=== PATIENT | female | born 1935 | race American Indian/Alaskan Native ===

== ENCOUNTER 2018-07-04 16:20 | Inpatient (IN) | payer MEDICARE ==
[2018-07-04 17:17] LABS: Basophils % (Auto) 0.4 % (0.0-1.8); Eosinophils % (Auto) 0.1 % (0.0-4.3); Hematocrit 42.8 % (30.3-42.9); Hemoglobin 13.7 gm/dl (10.1-14.3); Lymphocytes # (Auto) 0.7 K/mm3 (1.2-5.4); Lymphocytes % (Auto) 9.3 % (13.4-35.0); Mean Corpuscular HGB Conc 32 % (30-34); Mean Corpuscular Hemoglobin 26 pg (28-32); Mean Corpuscular Volume 82 fl (79-97); Monocytes # (Auto) 0.2 K/mm3 (0.0-0.8); Monocytes % (Auto) 2.3 % (0.0-7.3); Platelet Count 282 K/mm3 (140-440); Red Blood Count 5.22 M/mm3 (3.65-5.03); Red Cell Distribution Width 16.4 % (13.2-15.2)
[2018-07-04 17:28] LABS: BUN/Creatinine Ratio 18; Blood Urea Nitrogen 18 mg/dL (7-17); Calcium 9.9 mg/dL (8.4-10.2); Hemolysis Index 5
[2018-07-04] MEDS ORDERED: NACL 0.9% 1000 ML 1,000 ML ONE ×2 (18:11→20:04)
[2018-07-04] MEDS ORDERED: NITROSTAT SL ONE ×2 (18:11→18:24)
[2018-07-04] MEDS ORDERED: NACL 0.9% 1000 ML 1,000 ML IV ONE (18:24)
--- NOTE | 2018-07-04 18:39 | Emergency Department Report ---
ED General Adult HPI - General Chief complaint: Weakness Stated complaint: WEAK/SHORTNESS OF BREATH Time Seen by Provider: 07/04/18 17:56 Source: patient, EMS Mode of arrival: Stretcher Limitations: Other - History of Present Illness Initial comments: Progressive onset SOB that started at 2 am. Having intermittent nausea and vomiting. Has vague complaints of lower abd pain. No diarrhea, fevers, urinary complaints. Nonambulatory at baseline. On xarelto. - Related Data Home Medications Medication Instructions Recorded Confirmed Last Taken Cyanocobalamin (Vitamin B-12) 2,000 mcg PO DAILY 02/27/15 09/21/16 09/20/16 09: 00 [B-12] Digoxin [Lanoxin] 0.125 mg PO DAILY 02/27/15 09/20/16 05/26/15 Furosemide [Lasix] 40 mg PO DAILY 02/27/15 09/20/16 05/26/15 Gabapentin 300 mg PO TID 02/27/15 09/21/16 09/20/16 21:00 Glimepiride [Amaryl] 8 mg PO QAM 02/27/15 09/21/16 09/20/16 09:00 Metoprolol Succinate [Metoprolol 200 mg PO DAILY 02/27/15 09/21/16 09/20/16 09: 00 SUCCINATE ER TAB] Sitagliptin Phosphate [Januvia] 100 mg PO DAILY 02/27/15 09/21/16 09/20/16 09:00 Acetaminophen [Tylenol Arthritis] 325 mg PO PRN PRN 09/07/16 09/20/16 Unknown Allopurinol [Zyloprim] 300 mg PO QHS 09/07/16 09/21/16 09/20/16 21:00 Aspirin [Adult Low Dose Aspirin EC] 81 mg PO DAILY 09/07/16 09/21/16 09/20/16 09 :00 AtorvaSTATin [Lipitor] 40 mg PO DAILY 09/07/16 09/21/16 09/20/16 09:00 Escitalopram [Lexapro] 10 mg PO DAILY 09/07/16 09/21/16 09/20/16 09:00 Fenofibrate [Tricor] 145 mg PO QDAY 09/07/16 09/21/16 09/20/16 09:00 Insulin Lispro [HumaLOG VIAL] 1 unit SQ BID 09/07/16 09/20/16 Unknown Rivaroxaban [Xarelto] 20 mg PO DAILY 09/07/16 09/21/16 09/20/16 09:00 Ergocalciferol [Vitamin D2] 1 cap PO QWEEK 09/20/16 09/20/16 Unknown Previous Rx's Medication Instructions Recorded Last Taken Type HYDROcodone/APAP 5-325 [Freedom 1 each PO Q6HR PRN #20 tablet 06/05/15 Unknown Rx 5-325 mg TAB] Lisinopril [Zestril TAB] 20 mg PO QDAY #30 tablet 06/05/15 09/20/16 09:00 Rx Allergies Allergy/AdvReac Type Severity Reaction Status Date / Time No Known Allergies Allergy Verified 02/27/15 11:21 ED Review of Systems ROS: Stated complaint: WEAK/SHORTNESS OF BREATH Other details as noted in HPI Comment: All other systems reviewed and negative Respiratory: SOB at rest Cardiovascular: chest pain Gastrointestinal: abdominal pain, nausea, vomiting ED Past Medical Hx - Past Medical History Hx Hypertension: Yes Hx Congestive Heart Failure: Yes (CHRONIC) Hx Diabetes: Yes Hx Renal Disease: No 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) Hx Seizures: No Hx Asthma: No Hx COPD: No Additional medical history: high cholesterol - Surgical History Hx Pacemaker: Yes ("for slow heart rate") - Social History Smoking Status: Never Smoker Substance Use Type: None - Medications Home Medications: Home Medications Medication Instructions Recorded Confirmed Last Taken Type Cyanocobalamin (Vitamin B-12) 2,000 mcg PO DAILY 02/27/15 09/21/16 09/20/16 09: 00 History [B-12] Digoxin [Lanoxin] 0.125 mg PO DAILY 02/27/15 09/20/16 05/26/15 History Furosemide [Lasix] 40 mg PO DAILY 02/27/15 09/20/16 05/26/15 History Gabapentin 300 mg PO TID 02/27/15 09/21/16 09/20/16 21:00 History Glimepiride [Amaryl] 8 mg PO QAM 02/27/15 09/21/16 09/20/16 09:00 History Metoprolol Succinate [Metoprolol 200 mg PO DAILY 02/27/15 09/21/16 09/20/16 09: 00 History SUCCINATE ER TAB] Sitagliptin Phosphate [Januvia] 100 mg PO DAILY 02/27/15 09/21/16 09/20/16 09: 00 History HYDROcodone/APAP 5-325 [Freedom 1 each PO Q6HR PRN #20 tablet 06/05/15 09/20/16 Unknown Rx 5-325 mg TAB] Lisinopril [Zestril TAB] 20 mg PO QDAY #30 tablet 06/05/15 09/21/16 09/20/16 09: 00 Rx Acetaminophen [Tylenol Arthritis] 325 mg PO PRN PRN 09/07/16 09/20/16 Unknown History Allopurinol [Zyloprim] 300 mg PO QHS 09/07/16 09/21/16 09/20/16 21:00 History Aspirin [Adult Low Dose Aspirin EC] 81 mg PO DAILY 09/07/16 09/21/16 09/20/16 09 :00 History AtorvaSTATin [Lipitor] 40 mg PO DAILY 09/07/16 09/21/16 09/20/16 09:00 History Escitalopram [Lexapro] 10 mg PO DAILY 09/07/16 09/21/16 09/20/16 09:00 History Fenofibrate [Tricor] 145 mg PO QDAY 09/07/16 09/21/16 09/20/16 09:00 History Insulin Lispro [HumaLOG VIAL] 1 unit SQ BID 09/07/16 09/20/16 Unknown History Rivaroxaban [Xarelto] 20 mg PO DAILY 09/07/16 09/21/16 09/20/16 09:00 History Ergocalciferol [Vitamin D2] 1 cap PO QWEEK 09/20/16 09/20/16 Unknown History ED Physical Exam - General Limitations: No Limitations General appearance: alert, in no apparent distress - Head Head exam: Present: atraumatic, normocephalic - Eye Eye exam: Present: normal appearance - ENT ENT exam: Present: mucous membranes moist - Neck Neck exam: Present: normal inspection - Respiratory Respiratory exam: Present: normal lung sounds bilaterally. Absent: respiratory distress - Cardiovascular Cardiovascular Exam: Present: regular rate, normal rhythm, tachycardia, JVD ( moderate). Absent: systolic murmur, diastolic murmur, rubs, gallop - GI/Abdominal GI/Abdominal exam: Present: soft, normal bowel sounds. Absent: distended, tenderness, guarding, rebound - Extremities Exam Extremities exam: Present: normal inspection, pedal edema (bilateral trace pedal edema) - Back Exam Back exam: Present: normal inspection - Neurological Exam Neurological exam: Present: alert, oriented X3 - Psychiatric Psychiatric exam: Present: normal affect, normal mood - Skin Skin exam: Present: warm, dry, intact, normal color. Absent: rash ED Course Vital Signs 07/04/18 07/04/18 07/04/18 17:36 18:05 18:28 Temperature Pulse Rate 144 H 127 H Respiratory 40 H Rate Blood Pressure 141/93 Blood Pressure [Left] O2 Sat by Pulse 98 96 Oximetry 07/04/18 07/04/18 07/04/18 18:31 19:01 19:31 Temperature Pulse Rate 137 H 126 H 130 H Respiratory 23 25 H 20 Rate Blood Pressure 147/95 139/97 142/106 Blood Pressure [Left] O2 Sat by Pulse 95 98 97 Oximetry 07/04/18 07/04/18 07/04/18 19:45 20:27 20:31 Temperature Pulse Rate 130 H 122 H Respiratory 42 H Rate Blood Pressure 142/106 144/91 146/89 Blood Pressure [Left] O2 Sat by Pulse 100 97 Oximetry 07/04/18 07/04/18 07/04/18 21:01 21:05 21:20 Temperature 97.3 F L Pulse Rate 127 H 130 H 97 H Respiratory 29 H 20 Rate Blood Pressure 144/110 141/110 Blood Pressure 122/86 [Left] O2 Sat by Pulse 99 97 Oximetry 07/04/18 21:25 Temperature Pulse Rate 97 H Respiratory Rate Blood Pressure 122/86 Blood Pressure [Left] O2 Sat by Pulse Oximetry - Reevaluation(s) Reevaluation #1: Repeat EKG shows a. fib w/ RVR with a rate of 127 07/04/18 20:01 Reevaluation #2: CT C/A/P without acute changes. Troponin mildly elevated at 1.9. Repeat EKG shows sinus tach and a. fib w/ rvr. Likely presentation is due to a. fib w/ rvr and CHF exacerbation. Pt has been given lasix/metoprolol. Feels better on re- eval. She is cleared for admission to the hospital. 07/04/18 21:55 ED Medical Decision Making - Lab Data Result diagrams: 07/04/18 16:51 07/04/18 16:51 - EKG Data -: EKG Interpreted by Me EKG shows normal: sinus rhythm, axis, QRS complexes, ST-T waves Rate: tachycardia - EKG Data Interpretation: other (prolonged qt interval with a QTc of 515, ) - Radiology Data Radiology results: report reviewed, image reviewed - Medical Decision Making 82-year-old female with past medical history CHF on Lasix, atrial fibrillation on Zaroxolyn/metoprolol, diabetes that presents to the ER with shortness of breath. Patient is tachycardic on presentation. Normal oxygenation. Mild tachypnea. Speaking in full sentences. Patient has moderate JVD and trace pedal edema bilaterally. Chest x-ray shows mild bilateral interstitial edema. She was given a sublingual nitroglycerin, which improved her symptoms. EKG shows sinus tachycardia. Given patient's varying heart rate, I think that patient might be having paroxysmal a. fib that might not have been captured on our EKG. SHe is already anticoagulated. Will give IV metoprolol for rate control once her CT's have been read since she is HD stable. BNP is significantly elevated at 19,000. I will give the patient 40 mg IV Lasix for likely CHF exacerbation. Troponin and digoxin level are pending. I will order a CT chest, abdomen, and pelvis given patient's nondescript history of abdominal pain, as well as sedentary lifestyle through a possible PE. - Differential Diagnosis ACS, PE, CHF exacerbation, UTI, dehydration, sepsis, pna Critical care attestation.: If time is entered above; I have spent that time in minutes in the direct care of this critically ill patient, excluding procedure time. ED Disposition Clinical Impression: CHF exacerbation Atrial fibrillation Qualifiers: Atrial fibrillation type: chronic Qualified Code(s): I48.2 - Chronic atrial fibrillation Disposition: OP ADMIT IP TO THIS HOSP Is pt being admited?: Yes Does the pt Need Aspirin: No Condition: Stable Referrals: PRIMARY CARE, [Primary Care Provider] - 3-5 Days
--- NOTE | 2018-07-04 18:43 | XRay Report ---
FINAL REPORT EXAM: XR CHEST 1V AP HISTORY: Shortness of breath TECHNIQUE: Frontal chest x-ray Comparison: None FINDINGS: Bipolar pacer is present. Cardiomegaly. Mild pulmonary vascular cephalization. Mild bronchial wall thickening. Patient is slightly rotated. IMPRESSION: Cardiomegaly. Bipolar pacer. Mild pulmonary vascular cephalization with bronchial wall thickening. Findings may represent chronic congestive changes or a more acute vascular decompensation. Correlate with clinical symptoms. Two view chest with larger inspiratory volumes may be valuable
[2018-07-04] MEDS ORDERED: LASIX IV ONE (18:56)
[2018-07-04] MEDS ORDERED: LOPRESSOR IV ONE ×2 (18:56→20:35)
[2018-07-04] MEDS ORDERED: BABY ASPIRIN PO ONE (19:25)
[2018-07-04] MEDS ORDERED: NITROSTAT SL PRN (19:34)
[2018-07-04 19:35] LABS: Chol/HDL Ratio 3.24 %
[2018-07-04] MEDS ORDERED: ACETAMINOPHEN 325 MG PO PRN (20:05)
--- NOTE | 2018-07-04 20:05 | History and Physical Report ---
History of Present Illness Date of examination: 07/04/18 Date of admission: 07/04/2018 Chief complaint: Chief complaint: Increasing shortness of breath for 1 week History of present illness: History of Present Illness: 82-year-old black female with multiple medical problems including CHF atrial fibrillation insulin-dependent diabetes hypertension gout and hyperlipidemia comes in for increasing shortness of breath for last 1 week. More so since 2 AM. Patient is unable to lie flat. Patient has NYHA class IV symptoms. Severe orthopnea present. No PND attacks. No fever or chills. He gets short of breath on walking for about couple yards. No chest pain. 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) Asthma: No COPD: No Additional medical history: high cholesterol Surgical History Hx Pacemaker: Yes ("for slow heart rate") Social History Smoking Status: Never Smoker Substance Use Type: None Family history Htn Medications Home Medications: Home Medications Medication Instructions Recorded Confirmed Last Taken Type Cyanocobalamin (Vitamin B-12) 2,000 mcg PO DAILY 02/27/15 09/21/16 09/20/16 09: 00 History [B-12] Digoxin [Lanoxin] 0.125 mg PO DAILY 02/27/15 09/20/16 05/26/15 History Furosemide [Lasix] 40 mg PO DAILY 02/27/15 09/20/16 05/26/15 History Gabapentin 300 mg PO TID 02/27/15 09/21/16 09/20/16 21:00 History Glimepiride [Amaryl] 8 mg PO QAM 02/27/15 09/21/16 09/20/16 09:00 History Metoprolol Succinate [Metoprolol 200 mg PO DAILY 02/27/15 09/21/16 09/20/16 09: 00 History SUCCINATE ER TAB] Sitagliptin Phosphate [Januvia] 100 mg PO DAILY 02/27/15 09/21/16 09/20/16 09: 00 History HYDROcodone/APAP 5-325 [[place] 1 each PO Q6HR PRN #20 tablet 06/05/15 09/20/16 Unknown Rx 5-325 mg TAB] Lisinopril [Zestril TAB] 20 mg PO QDAY #30 tablet 06/05/15 09/21/16 09/20/16 09: 00 Rx Acetaminophen [Tylenol Arthritis] 325 mg PO PRN PRN 09/07/16 09/20/16 Unknown History Allopurinol [Zyloprim] 300 mg PO QHS 09/07/16 09/21/16 09/20/16 21:00 History Aspirin [Adult Low Dose Aspirin EC] 81 mg PO DAILY 09/07/16 09/21/16 09/20/16 09 :00 History AtorvaSTATin [Lipitor] 40 mg PO DAILY 09/07/16 09/21/16 09/20/16 09:00 History Escitalopram [Lexapro] 10 mg PO DAILY 09/07/16 09/21/16 09/20/16 09:00 History Fenofibrate [Tricor] 145 mg PO QDAY 09/07/16 09/21/16 09/20/16 09:00 History Insulin Lispro [HumaLOG VIAL] 1 unit SQ BID 09/07/16 09/20/16 Unknown History Rivaroxaban [Xarelto] 20 mg PO DAILY 09/07/16 09/21/16 09/20/16 09:00 History Ergocalciferol [Vitamin D2] 1 cap PO QWEEK 09/20/16 09/20/16 Unknown History Review of systems ROS: Stated complaint: WEAK/SHORTNESS OF BREATH Other details as noted in HPI Comment: All other systems reviewed and negative Respiratory: SOB at rest Cardiovascular: No chest pain, shortness of breath on lying flat. Also shortness of breath on minimal exertion Gastrointestinal: abdominal pain, nausea, vomiting 14 point review of systems done--otherwise negative Medications and Allergies Allergies Allergy/AdvReac Type Severity Reaction Status Date / Time No Known Allergies Allergy Verified 02/27/15 11:21 Home Medications Medication Instructions Recorded Confirmed Last Taken Type Cyanocobalamin (Vitamin B-12) 2,000 mcg PO DAILY 02/27/15 09/21/16 09/20/16 09: 00 History [B-12] Digoxin [Lanoxin] 0.125 mg PO DAILY 02/27/15 09/20/16 05/26/15 History Furosemide [Lasix] 40 mg PO DAILY 02/27/15 09/20/16 05/26/15 History Gabapentin 300 mg PO TID 02/27/15 09/21/16 09/20/16 21:00 History Glimepiride [Amaryl] 8 mg PO QAM 02/27/15 09/21/16 09/20/16 09:00 History Metoprolol Succinate [Metoprolol 200 mg PO DAILY 02/27/15 09/21/16 09/20/16 09: 00 History SUCCINATE ER TAB] Sitagliptin Phosphate [Januvia] 100 mg PO DAILY 02/27/15 09/21/16 09/20/16 09: 00 History HYDROcodone/APAP 5-325 [[place] 1 each PO Q6HR PRN #20 tablet 06/05/15 09/20/16 Unknown Rx 5-325 mg TAB] Lisinopril [Zestril TAB] 20 mg PO QDAY #30 tablet 06/05/15 09/21/16 09/20/16 09: 00 Rx Acetaminophen [Tylenol Arthritis] 325 mg PO PRN PRN 09/07/16 09/20/16 Unknown History Allopurinol [Zyloprim] 300 mg PO QHS 09/07/16 09/21/16 09/20/16 21:00 History Aspirin [Adult Low Dose Aspirin EC] 81 mg PO DAILY 09/07/16 09/21/16 09/20/16 09 :00 History AtorvaSTATin [Lipitor] 40 mg PO DAILY 09/07/16 09/21/16 09/20/16 09:00 History Escitalopram [Lexapro] 10 mg PO DAILY 09/07/16 09/21/16 09/20/16 09:00 History Fenofibrate [Tricor] 145 mg PO QDAY 09/07/16 09/21/16 09/20/16 09:00 History Insulin Lispro [HumaLOG VIAL] 1 unit SQ BID 09/07/16 09/20/16 Unknown History Rivaroxaban [Xarelto] 20 mg PO DAILY 09/07/16 09/21/16 09/20/16 09:00 History Ergocalciferol [Vitamin D2] 1 cap PO QWEEK 09/20/16 09/20/16 Unknown History Active Meds: Active Medications Nitroglycerin (Nitrostat) 0.4 mg SL .Q5MIN PRN PRN Reason: Chest Pain Exam - Physical Exam Narrative exam: Lying in bed uncomfortable - Constitutional Vitals: Temp Pulse Resp BP Pulse Ox 130 H 20 142/106 97 07/04/18 19:31 07/04/18 19:31 07/04/18 19:31 07/04/18 19:31 General appearance: Present: mild distress, well-nourished - EENT Eyes: Present: PERRL ENT: hearing intact, clear oral mucosa - Neck Neck: Present: supple, normal ROM - Respiratory Respiratory effort: normal Respiratory: bilateral: CTA - Cardiovascular Heart rate: 96 Rhythm: irregularly irregular Heart Sounds: Present: S1 & S2. Absent: rub, click - Extremities Extremities: no ischemia, pulses intact, pulses symmetrical, No edema Extremity abnormal: edema (pedal edema present) Peripheral Pulses: within normal limits - Abdominal General gastrointestinal: Present: soft, non-tender, non-distended, normal bowel sounds Female genitourinary: Present: normal - Rectal Rectal Exam: deferred - Integumentary Integumentary: Present: clear, warm, dry - Musculoskeletal Musculoskeletal: gait normal, strength equal bilaterally - Psychiatric Psychiatric: appropriate mood/affect, intact judgment & insight - Neurologic Neurologic: CNII-XII intact, moves all extremities - Allied Health Allied health notes reviewed: nursing, case management Results - Labs CBC & Chem 7: 07/04/18 16:51 07/04/18 16:51 Labs: Laboratory Last Values WBC 7.3 K/mm3 (4.5-11.0) 07/04/18 16:51 RBC 5.22 M/mm3 (3.65-5.03) H 07/04/18 16:51 Hgb 13.7 gm/dl (10.1-14.3) 07/04/18 16:51 Hct 42.8 % (30.3-42.9) 07/04/18 16:51 MCV 82 fl (79-97) 07/04/18 16:51 MCH 26 pg (28-32) L 07/04/18 16:51 MCHC 32 % (30-34) 07/04/18 16:51 RDW 16.4 % (13.2-15.2) H 07/04/18 16:51 Plt Count 282 K/mm3 (140-440) 07/04/18 16:51 Lymph % (Auto) 9.3 % (13.4-35.0) L 07/04/18 16:51 [place] % (Auto) 2.3 % (0.0-7.3) 07/04/18 16:51 Eos % (Auto) 0.1 % (0.0-4.3) 07/04/18 16:51 Baso % (Auto) 0.4 % (0.0-1.8) 07/04/18 16:51 Lymph # 0.7 K/mm3 (1.2-5.4) L 07/04/18 16:51 [place] # 0.2 K/mm3 (0.0-0.8) 07/04/18 16:51 Eos # 0.0 K/mm3 (0.0-0.4) 07/04/18 16:51 Baso # 0.0 K/mm3 (0.0-0.1) 07/04/18 16:51 Seg Neutrophils % 87.9 % (40.0-70.0) H 07/04/18 16:51 Seg Neutrophils # 6.4 K/mm3 (1.8-7.7) 07/04/18 16:51 Sodium 138 mmol/L (137-145) 07/04/18 16:51 Potassium 4.4 mmol/L (3.6-5.0) 07/04/18 16:51 Chloride 100.0 mmol/L (98-107) 07/04/18 16:51 Carbon Dioxide 17 mmol/L (22-30) L 07/04/18 16:51 Anion Gap 25 mmol/L 07/04/18 16:51 BUN 18 mg/dL (7-17) H 07/04/18 16:51 Creatinine 1.0 mg/dL (0.7-1.2) 07/04/18 16:51 Estimated GFR > 60 ml/min 07/04/18 16:51 BUN/Creatinine Ratio 18 % 07/04/18 16:51 Glucose 197 mg/dL (65-100) H 07/04/18 16:51 Calcium 9.9 mg/dL (8.4-10.2) 07/04/18 16:51 Troponin T 1.930 ng/mL (0.00-0.029) H* 07/04/18 18:52 NT-Pro-B Natriuret Pep 91299 pg/mL (0-900) H 07/04/18 16:51 Triglycerides 102 mg/dL (2-149) 07/04/18 18:52 Cholesterol 185 mg/dL (50-199) 07/04/18 18:52 LDL Cholesterol Direct 133 mg/dL (50-130) H 07/04/18 18:52 HDL Cholesterol 57 mg/dL (40-59) 07/04/18 18:52 Cholesterol/HDL Ratio 3.24 % 07/04/18 18:52 Short CBC 07/04/18 Range/Units 16:51 WBC 7.3 (4.5-11.0) K/mm3 Hgb 13.7 (10.1-14.3) gm/dl Hct 42.8 (30.3-42.9) % Plt Count 282 (140-440) K/mm3 BMP 07/04/18 16:51 Sodium 138 Potassium 4.4 Chloride 100.0 Carbon Dioxide 17 L BUN 18 H Creatinine 1.0 Glucose 197 H Calcium 9.9 Cardiac Enzymes 07/04/18 Range/Units 18:52 Troponin T 1.930 H* (0.00-0.029) ng/mL - Imaging and Cardiology EKG: report reviewed (atrial fibrillation ventricular premature complexes right bundle-branch block heart rate of 121/m) Imaging and Cardiology: Chest x-ray IMPRESSION: Cardiomegaly. Bipolar pacer. Mild pulmonary vascular cephalization with bronchial wall thickening. Findings may represent chronic congestive changes or a more acute vascular decompensation. Correlate with clinical symptoms. Two view chest with larger inspiratory volumes may be valuable CT angiogram Report not available Assessment and Plan Advance Directives: Yes (full code) VTE prophylaxis?: Chemical Plan of care discussed with patient/family: Yes - Patient Problems (1) Non-STEMI (non-ST elevated myocardial infarction) Current Visit: Yes Status: Acute Plan to address problem: Troponin very high Patient started on IV heparin Repeat the troponins (2) Acute respiratory failure with hypoxia Current Visit: Yes Status: Acute Plan to address problem: Secondary to CHF Correct the congestive heart failure (3) Acute exacerbation of congestive heart failure Current Visit: Yes Status: Acute Qualifiers: Heart failure type: combined systolic and diastolic Qualified Code(s): I50.43 - Acute on chronic combined systolic (congestive) and diastolic ( congestive) heart failure Plan to address problem: Patient has severe CHF exacerbation BNP is around 18 ,000 IV Lasix 40 mg every 12 Cardiology consult requested Echocardiogram ordered Cardiac rehabilitation as outpatient (4) Atrial fibrillation Current Visit: Yes Status: Chronic Qualifiers: Atrial fibrillation type: chronic Qualified Code(s): I48.2 - Chronic atrial fibrillation Plan to address problem: Continue Xarelto and digoxin (5) Hypertension Current Visit: Yes Status: Chronic Qualifiers: Hypertension type: essential hypertension Qualified Code(s): I10 - Essential (primary) hypertension Plan to address problem: Continue antihypertensives in the form of lisinopril and metoprolol (6) T2DM (type 2 diabetes mellitus) Current Visit: Yes Status: Chronic Qualifiers: Diabetes mellitus residential insulin use: without technician terminal and repeater use Plan to address problem: Continue Januvia and glimepiride and coverage Check hemoglobin A1c (7) Hyperlipidemia Current Visit: Yes Status: Chronic Qualifiers: Hyperlipidemia type: mixed hyperlipidemia Qualified Code(s): E78.2 - Mixed hyperlipidemia Plan to address problem: Continue statins (8) Gout Current Visit: Yes Status: Inactive Qualifiers: Chronicity: unspecified Plan to address problem: continue allopurinol to prevent gout attack (9) Vitamin D deficiency Current Visit: Yes Status: Chronic Plan to address problem: Patient can resume vitamin D after discharged (10) Depression Current Visit: Yes Status: Chronic Qualifiers: Depression Type: unspecified Qualified Code(s): F32.9 - Major depressive disorder, single episode, unspecified Plan to address problem: Continue Lexapro (11) DVT prophylaxis Current Visit: Yes Status: Acute Plan to address problem: Patient on Xarelto GI prophylaxis initiated
[2018-07-04] MEDS ORDERED: MORPHINE IV PRN (20:09)
[2018-07-04] MEDS ORDERED: AMBIEN PO PRN (20:09)
[2018-07-04] MEDS ORDERED: SODIUM CHLORIDE FLUSH SYRINGE 10 ML IV PRN ×2 (20:09→21:02)
[2018-07-04] MEDS ORDERED: TYLENOL PO PRN ×2 (20:09→21:02)
[2018-07-04] MEDS ORDERED: ZOFRAN IV PRN ×2 (20:09→21:02)
[2018-07-04] MEDS ORDERED: METOPROLOL SUCCINATE 200 MG PO SCH (20:15)
[2018-07-04] MEDS ORDERED: NON-FORMULARY (Sitagliptin Phosphate [Januvia] 100 MG) PO SCH (20:15)
[2018-07-04] MEDS ORDERED: NORCO 5/325 PO PRN (20:32)
[2018-07-04] MEDS ORDERED: LASIX PO SCH (21:00)
[2018-07-04] MEDS ORDERED: HumaLOG SUB-Q ONE (21:00)
[2018-07-04] MEDS ORDERED: XARELTO PO SCH (21:00)
[2018-07-04 21:24] LABS: Amorphous Crystals,Urine Few; Bilirubin,Urine NEG (Negative); Blood,Urine SM (Negative); Color,Urine Yellow (Yellow); Protein,Urine <15 mg/dL mg/dL (Negative); Urobilinogen,Urine < 2.0 mg/dL (<2.0)
[2018-07-04] MEDS: TOPROL XL PO SCH (21:25)
[2018-07-04] MEDS: ZESTRIL PO SCH (21:25)
[2018-07-04] MEDS: TRADJENTA PO SCH (21:41)
--- NOTE | 2018-07-04 21:41 | Cat Scan Report ---
FINAL REPORT EXAM: CT ANGIO CHEST HISTORY: dyspnea TECHNIQUE: Spiral CTA of the chest after the uneventful administration of IV contrast. Multiplanar reformations. 100 mL Omnipaque IV. PRIORS: None. FINDINGS: Chest: The main and bilateral proximal pulmonary arteries are normally opacified without endoluminal filling defects. Left subclavian transvenous cardiac device, moderate cardiomegaly and coronary artery calcifications. Thoracic aorta suboptimally opacified, without apparent aneurysm or pseudoaneurysm. No significant lymph node enlargement or axillary adenopathy. Lungs show mild and probably chronic interstitial change or scarring scattered bilaterally. Minimal pleural thickening or fluid along right mid posterior pleural margin. No discrete parenchymal mass, focal consolidation or significant pleural effusions. No apparent pneumothorax. Visualized upper abdomen grossly unremarkable. Possible subcentimeter, right renal cyst. Gallbladder surgically absent. Degenerative change in the thoracic spine. IMPRESSION: 1. No evidence of large vessel or central pulmonary emboli. No acute consolidation. 2. Cardiomegaly and coronary artery calcifications.
[2018-07-04 21:50] LABS: Hemoglobin 13.9 gm/dl (10.1-14.3)
--- NOTE | 2018-07-04 21:50 | Cat Scan Report ---
FINAL REPORT EXAM: CT ABDOMEN PELVIS W CON HISTORY: generalized abd pain TECHNIQUE: Spiral CT scanning of the abdomen and pelvis after the uneventful administration of IV contrast. Multiplanar reformations. 100 mL Omnipaque IV. PRIORS: None. FINDINGS: Abdomen: Lung bases evaluated on CT chest examination of same date. Gallbladder surgically absent, with biliary duct prominence probably postsurgical. Liver without significant abnormality. Spleen without significant abnormality. Pancreas without significant abnormality. Probable subcentimeter, right renal cyst. Lobular cortical margins and heterogeneous enhancement of bilateral kidneys noted on initial images, with homogeneous enhancement on delayed images may reflect renal insufficiency. Adrenal glands without significant abnormality. Pelvis: Diffuse diverticular change throughout the colon. Remainder of visualized bowel grossly unremarkable. Appendix within normal limits. No significant free peritoneal fluid, discrete abscess or apparent adenopathy. Aortoiliac calcification without aneurysmal dilatation. Ovoid and heterogeneously enhancing soft tissue mass contiguous with right uterine corpus measuring 4.3 x 4.6 cm in maximal cross-sectional diameter. Degenerative changes in thoracolumbar spine. IMPRESSION: 1. Diverticulosis. 2. Probable leiomyomatous change in the uterus. 3. Degenerative and senescent changes.
[2018-07-04 21:59] LABS: INR 1.17 (0.87-1.13); Partial Thromboplastin Time 32.1 Sec. (24.2-36.6)
[2018-07-04] MEDS ORDERED: SODIUM CHLORIDE FLUSH SYRINGE 10 ML IV SCH (22:00)
[2018-07-04] MEDS: ZYLOPRIM PO SCH (22:00)
[2018-07-04] MEDS: LEXAPRO PO SCH (22:00)
[2018-07-04] MEDS: K-DUR PO SCH (22:00)
[2018-07-04] MEDS: SODIUM CHLORIDE FLUSH SYRINGE 10 ML IV SCH (22:44)
[2018-07-05] MEDS: HEPARIN/ 0.45% NACL-25,000 UNIT/500 ML 25,000 UNIT/500 ML BAG IV SCH (01:15)
[2018-07-05] MEDS: LASIX IV SCH ×2 (05:30→18:41)
[2018-07-05 07:42] LABS: Alanine Aminotransferase 46 units/L (7-56); Albumin 3.7 g/dL (3.9-5); BUN/Creatinine Ratio 22; Blood Urea Nitrogen 20 mg/dL (7-17); Calcium 9.6 mg/dL (8.4-10.2); Hemolysis Index 15
[2018-07-05] MEDS ORDERED: NEURONTIN PO SCH (08:00)
[2018-07-05] MEDS: NEURONTIN PO SCH ×3 (08:08→23:16)
[2018-07-05] MEDS ORDERED: HALFPRIN EC PO SCH (10:00)
[2018-07-05] MEDS ORDERED: LOVENOX SUB-Q SCH (10:00)
[2018-07-05] MEDS: TOPROL XL PO SCH (10:16)
--- NOTE | 2018-07-05 11:21 | Consultation ---
History of Present Illness Consult date: 07/05/18 Requesting physician: SENTHIL LINCOLN Consult reason: congestive heart failure History of present illness: The pt is an 82 YO female with a past medical history significant for heart failure, NICMP, ? PPM v. AICD in situ, atrial fibrillation, anticoagulated with Xarelto, HTN, HLP, DM, gout, ? dementia. She is previously unknown to our practice and denies seeing any window repairer on a regular basis. She presented with complaints of intermittent chest pain and progressively worsening SOB with orthopnea for 1 week. She is a rather poor historian and provides no additional details. She lives with her daughter, who is at bedside on evaluation. Pt denies any palpitations, n/v, diaphoresis, dizziness or syncope. LHC done 05/2015 showed mild nonobstructive CAD, dilated NICMP with EF <20%. Echo done 05/2015 was TDS due to body habitus, showed EF 40-45%, paradoxical septal motion, pacemaker wire in RV. Past History Past Medical History: diabetes, heart failure, hypertension, hyperlipidemia Past Surgical History: Other (? PPM v. AICD in situ) Social history: lives with family Medications and Allergies Allergies Allergy/AdvReac Type Severity Reaction Status Date / Time No Known Allergies Allergy Verified 02/27/15 11:21 Home Medications Medication Instructions Recorded Confirmed Last Taken Type Digoxin [Lanoxin] 0.125 mg PO DAILY 02/27/15 07/05/18 07/03/18 History Furosemide [Lasix] 40 mg PO DAILY 02/27/15 07/05/18 07/03/18 History Gabapentin 300 mg PO TID 02/27/15 07/05/18 07/03/18 History Glimepiride [Amaryl] 8 mg PO QAM 02/27/15 07/05/18 07/03/18 History Metoprolol Succinate [Metoprolol 200 mg PO DAILY 02/27/15 07/05/18 07/04/18 History SUCCINATE ER TAB] Sitagliptin Phosphate [Januvia] 100 mg PO DAILY 02/27/15 07/05/18 07/03/18 History HYDROcodone/APAP 5-325 [[place] 1 each PO Q6HR PRN #20 tablet 06/05/15 07/05/18 Unknown Rx 5-325 mg TAB] Lisinopril [Zestril TAB] 20 mg PO QDAY #30 tablet 06/05/15 07/05/18 07/03/18 Rx Allopurinol [Zyloprim] 300 mg PO QHS 09/07/16 07/05/18 07/03/18 History Escitalopram [Lexapro] 10 mg PO DAILY 09/07/16 07/05/18 07/03/18 History Rivaroxaban [Xarelto] 20 mg PO DAILY 09/07/16 07/05/18 07/03/18 History Active Meds: Active Medications Acetaminophen (Tylenol) 650 mg PO Q4H PRN PRN Reason: Pain MILD(1-3)/Fever >100.5/JOH[place]ON Acetaminophen/Hydrocodone Bitart ([place] 5/325) 1 each PO Q6H PRN PRN Reason: Pain, Moderate (4-6) Allopurinol (Zyloprim) 300 mg PO QHS [facility] Last Admin: 07/04/18 22:00 Dose: Not Given Aspirin (Halfprin Ec) 81 mg PO DAILY [facility] Atorvastatin Calcium (Lipitor) 40 mg PO DAILY [facility] Last Admin: 07/04/18 22:00 Dose: Not Given Cyanocobalamin (Vitamin B-12) 2,000 mcg PO DAILY [facility] Digoxin (Lanoxin) 0.125 mg PO DAILY [facility] Escitalopram Oxalate (Lexapro) 10 mg PO DAILY [facility] Last Admin: 07/04/18 22:00 Dose: Not Given Fenofibrate (Tricor) 145 mg PO QDAY [facility] Furosemide (Lasix) 40 mg IV 0600,1800 [facility] Last Admin: 07/05/18 05:30 Dose: 40 mg Gabapentin (Neurontin) 300 mg PO TID [facility] Glimepiride (Amaryl) 8 mg PO QAM [facility] Heparin Sodium/Sodium Chloride (Heparin/ 0.45% Nacl-25,000 Unit/500 Ml) 25,000 unit in 500 mls @ 20 mls/hr IV TITRATE [facility]; Protocol Last Admin: 07/05/18 01:15 Dose: 1,000 units/hr, 20 mls/hr Linagliptin (Tradjenta) 5 mg PO QDAY [facility] Last Admin: 07/04/18 21:41 Dose: Not Given Lisinopril (Zestril) 20 mg PO QDAY [facility] Last Admin: 07/04/18 21:25 Dose: Not Given Metoprolol Succinate (Toprol Xl) 200 mg PO QDAY [facility] Last Admin: 07/04/18 21:25 Dose: Not Given Morphine Sulfate (Morphine) 2 mg IV Q4H PRN PRN Reason: Pain, Moderate (4-6) Last Admin: 07/05/18 01:27 Dose: 2 mg Nitroglycerin (Nitrostat) 0.4 mg SL .Q5MIN PRN PRN Reason: Chest Pain Last Admin: 07/04/18 19:45 Dose: 0.4 mg Ondansetron HCl (Zofran) 4 mg IV Q8H PRN PRN Reason: Nausea And Vomiting Last Admin: 07/04/18 21:30 Dose: 4 mg Potassium Chloride (K-Dur) 20 meq PO Q12HR [facility] Last Admin: 07/04/18 22:00 Dose: Not Given Sodium Chloride (Sodium Chloride Flush Syringe 10 Ml) 10 ml IV BID [facility] Last Admin: 07/04/18 22:44 Dose: 10 ml Sodium Chloride (Sodium Chloride Flush Syringe 10 Ml) 10 ml IV PRN PRN PRN Reason: LINE FLUSH Zolpidem Tartrate (Ambien) 5 mg PO QHS PRN PRN Reason: Insomnia Review of Systems Constitutional: no fever, no chills, no sweats Ears, nose, mouth and throat: no ear pain, no nose pain, no sinus pressure, no sinus pain Cardiovascular: chest pain, orthopnea, edema, shortness of breath, dyspnea on exertion, paroxysmal nocturnal dyspnea, high blood pressure, leg edema, no palpitations, no rapid/irregular heart beat, no syncope, no lightheadedness Respiratory: shortness of breath, dyspnea on exertion, no cough, no congestion, no wheezing, no pain on inspiration Gastrointestinal: no abdominal pain, no nausea, no vomiting, no diarrhea, no constipation, no change in bowel habits Genitourinary Female: no pelvic pain, no flank pain, no dysuria, no urinary frequency, no urgency Musculoskeletal: no neck stiffness, no neck pain, no shooting arm pain, no arm numbness/tingling, no low back pain, no shooting leg pain, no leg numbness/ tingling, no redness of joints Integumentary: no rash, no pruritis, no redness, no sores, no wounds Neurological: no head injury, no paralysis, no weakness, no parathesias, no numbness, no tingling, no seizures, no syncope Psychiatric: no anxiety Endocrine: no cold intolerance, no heat intolerance Hematologic/Lymphatic: no easy bruising, no easy bleeding Allergic/Immunologic: no urticaria, no wheezing Physical Examination Vital Signs Pulse Ox 98 07/04/18 17:36 General appearance: no acute distress HEENT: Positive: PERRL, Normocephaly, Mucus Membranes Moist Neck: Positive: neck supple, trachea midline Cardiac: Positive: irregularly irregular, S1/S2, Tachycardia Lungs: Positive: Decreased Breath Sounds Neuro: Positive: Grossly Intact Abdomen: Positive: Soft. Negative: Tender Skin: Positive: Clear. Negative: Rash, Wound Musculoskeletal: No Pain Extremities: Present: edema (trace BLE) Results 07/04/18 21:23 07/05/18 06:32 Cardiac Enzymes 07/05/18 Range/Units 06:32 AST 161 H (5-40) units/L Coagulation 07/04/18 Range/Units 21:23 PT 15.5 H (12.2-14.9) Sec. INR 1.17 H (0.87-1.13) APTT 32.1 (24.2-36.6) Sec. Lipids 07/04/18 Range/Units 18:52 Triglycerides 102 (2-149) mg/dL Cholesterol 185 (50-199) mg/dL HDL Cholesterol 57 (40-59) mg/dL Cholesterol/HDL Ratio 3.24 % CBC 07/04/18 07/04/18 Range/Units 16:51 21:23 WBC 7.3 (4.5-11.0) K/mm3 RBC 5.22 H (3.65-5.03) M/mm3 Hgb 13.7 13.9 (10.1-14.3) gm/dl Hct 42.8 42.0 (30.3-42.9) % Plt Count 282 264 (140-440) K/mm3 Lymph # 0.7 L (1.2-5.4) K/mm3 [place] # 0.2 (0.0-0.8) K/mm3 Eos # 0.0 (0.0-0.4) K/mm3 Baso # 0.0 (0.0-0.1) K/mm3 Comprehensive Metabolic Panel 08/07/18 08/08/18 Range/Units 16:51 06:32 Sodium 138 139 (137-145) mmol/L Potassium 4.4 4.5 (3.6-5.0) mmol/L Chloride 100.0 102.3 (98-107) mmol/L Carbon Dioxide 17 L 19 L (22-30) mmol/L BUN 18 H 20 H (7-17) mg/dL Creatinine 1.0 0.9 (0.7-1.2) mg/dL Glucose 197 H 170 H (65-100) mg/dL Calcium 9.9 9.6 (8.4-10.2) mg/dL AST 161 H (5-40) units/L ALT 46 (7-56) units/L Alkaline Phosphatase 69 (35-129) units/L Total Protein 7.4 (6.3-8.2) g/dL Albumin 3.7 L (3.9-5) g/dL - Imaging and Cardiology Echo: report reviewed (05/2015 was TDS due to body habitus, showed EF 40-45%, paradoxical septal motion, pacemaker wire in RV. ) Cardiac cath: report reviewed (05/2015 showed mild nonobstructive CAD, dilated NICMP with EF <20%. ) EKG: report reviewed, image reviewed EKG interpretations - Telemetry EKG Rhythm: Atrial Fibrillation - EKG Supraventricular dysrhythmia: atrial fibrillation Assessment and Plan Assessment: NSTEMI type I - ECG with no acute ischemic changes Acute on chronic systolic heart failure Atrial fibrillation with RVR - anticoagulated with Xarelto NICMP - EF 40-45% via echo 05/2015 ? PPM v. AICD in situ HTN HLP DM H/o gout ? dementia Plan: Optimize HR - initiate lopressor. Cont ASA, statin, lisinopril, IV lasix BID, heparin gtt. F/u echo. Obtain thyroid profile and digoxin level. Coronary angiography recommended in setting of NSTEMI. Indications, potential risks and benefits of LHC reviewed with pt and pt's daughter at bedside and they are agreeable to proceed with LHC. Will tentatively plan for LHC in AM pending pt's orthopnea is improved and HR is better controlled. The patient has been seen in conjunction with Dr. Austyn Henning who agrees with the assessment and plan of care.
[2018-07-05] MEDS ORDERED: NACL 0.9% 500 ML 500 ML IV SCH (12:00)
[2018-07-05] MEDS: AMARYL PO SCH (13:03)
[2018-07-05] MEDS: K-DUR PO SCH ×2 (13:04→23:15)
[2018-07-05] MEDS: LEXAPRO PO SCH (13:05)
[2018-07-05] MEDS: LANOXIN PO SCH (13:05)
[2018-07-05] MEDS: SODIUM CHLORIDE FLUSH SYRINGE 10 ML IV SCH ×2 (13:08→23:17)
[2018-07-05] MEDS: TRICOR PO SCH (13:09)
[2018-07-05] MEDS: TRADJENTA PO SCH (13:09)
[2018-07-05] MEDS: VITAMIN B-12 PO SCH (13:10)
[2018-07-05] MEDS: ZESTRIL PO SCH (13:11)
[2018-07-05] MEDS: LOPRESSOR PO SCH ×2 (14:17→23:00)
--- NOTE | 2018-07-05 14:25 | Progress Note ---
Assessment and Plan NSTEMI type I - ECG with no acute ischemic changes - Cont ASA, statin, lisinopril, IV lasix BID, heparin gtt. - plan for cardiac cath tomorrow Acute on chronic systolic heart failure, F/u echo. Atrial fibrillation with RVR - anticoagulated with Xarelto HTN, cont to monitor HLP, statin DM type 2, SSI H/o gout, not in flare ? dementia, supportive care Subjective Date of service: 07/05/18 Interval history: Pt seen and examined Patient is chest pain free now on heparin drip now Objective - Exam Narrative Exam: General appearance: no acute distress HEENT: Positive: PERRL, Normocephaly, Mucus Membranes Moist Neck: Positive: neck supple, trachea midline Cardiac: Positive: irregularly irregular, S1/S2, Tachycardia Lungs: Positive: Decreased Breath Sounds Neuro: Positive: Grossly Intact Abdomen: Positive: Soft. Negative: Tender Skin: Positive: Clear. Negative: Rash, Wound Musculoskeletal: No Pain Extremities: Present: edema (trace BLE) - Constitutional Vitals: Vital Signs - 12hr 07/05/18 07/05/18 04:17 04:44 Temperature 97.5 F L Pulse Rate 104 H 66 Respiratory 17 Rate Blood Pressure 127/97 O2 Sat by Pulse 99 Oximetry - Labs CBC & Chem 7: 07/06/18 05:52 07/06/18 05:52 Labs: Abnormal lab results 07/04/18 07/04/18 07/04/18 Range/Units 16:51 16:51 18:52 RBC 5.22 H (3.65-5.03) M/mm3 MCH 26 L (28-32) pg RDW 16.4 H (13.2-15.2) % Lymph % (Auto) 9.3 L (13.4-35.0) % Lymph # 0.7 L (1.2-5.4) K/mm3 Seg Neutrophils % 87.9 H (40.0-70.0) % PT (12.2-14.9) Sec. INR (0.87-1.13) Heparin Anti-Xa Level (0.3-0.7) U.I./ml Carbon Dioxide 17 L (22-30) mmol/L BUN 18 H (7-17) mg/dL Glucose 197 H (65-100) mg/dL POC Glucose (70-105) Hemoglobin A1c (4-6) % AST (5-40) units/L Troponin T 1.930 H* (0.00-0.029) ng/mL NT-Pro-B Natriuret Pep 56619 H (0-900) pg/mL Albumin (3.9-5) g/dL LDL Cholesterol Direct 133 H (50-130) mg/dL 07/04/18 07/04/18 07/04/18 Range/Units 21:23 23:17 23:17 RBC (3.65-5.03) M/mm3 MCH (28-32) pg RDW (13.2-15.2) % Lymph % (Auto) (13.4-35.0) % Lymph # (1.2-5.4) K/mm3 Seg Neutrophils % (40.0-70.0) % PT 15.5 H (12.2-14.9) Sec. INR 1.17 H (0.87-1.13) Heparin Anti-Xa Level (0.3-0.7) U.I./ml Carbon Dioxide (22-30) mmol/L BUN (7-17) mg/dL Glucose (65-100) mg/dL POC Glucose (70-105) Hemoglobin A1c 6.7 H (4-6) % AST (5-40) units/L Troponin T 4.500 H* D (0.00-0.029) ng/mL NT-Pro-B Natriuret Pep (0-900) pg/mL Albumin (3.9-5) g/dL LDL Cholesterol Direct (50-130) mg/dL 07/05/18 07/05/18 07/05/18 Range/Units 05:37 06:32 06:32 RBC (3.65-5.03) M/mm3 MCH (28-32) pg RDW (13.2-15.2) % Lymph % (Auto) (13.4-35.0) % Lymph # (1.2-5.4) K/mm3 Seg Neutrophils % (40.0-70.0) % PT (12.2-14.9) Sec. INR (0.87-1.13) Heparin Anti-Xa Level (0.3-0.7) U.I./ml Carbon Dioxide 19 L (22-30) mmol/L BUN 20 H (7-17) mg/dL Glucose 170 H (65-100) mg/dL POC Glucose 159 H (70-105) Hemoglobin A1c (4-6) % AST 161 H (5-40) units/L Troponin T 3.760 H* (0.00-0.029) ng/mL NT-Pro-B Natriuret Pep (0-900) pg/mL Albumin 3.7 L (3.9-5) g/dL LDL Cholesterol Direct (50-130) mg/dL 07/05/18 07/05/18 Range/Units 06:32 08:33 RBC (3.65-5.03) M/mm3 MCH (28-32) pg RDW (13.2-15.2) % Lymph % (Auto) (13.4-35.0) % Lymph # (1.2-5.4) K/mm3 Seg Neutrophils % (40.0-70.0) % PT (12.2-14.9) Sec. INR (0.87-1.13) Heparin Anti-Xa Level 0.28 L (0.3-0.7) U.I./ml Carbon Dioxide (22-30) mmol/L BUN (7-17) mg/dL Glucose (65-100) mg/dL POC Glucose (70-105) Hemoglobin A1c (4-6) % AST (5-40) units/L Troponin T 4.090 H* (0.00-0.029) ng/mL NT-Pro-B Natriuret Pep (0-900) pg/mL Albumin (3.9-5) g/dL LDL Cholesterol Direct (50-130) mg/dL
[2018-07-05 16:32] LABS: Creatine Kinase MB 46.9 ng/mL (0.0-4.0)
[2018-07-05] MEDS: ZYLOPRIM PO SCH (23:16)
[2018-07-06 06:09] LABS: Basophils # (Auto) 0.1 K/mm3 (0.0-0.1); Basophils % (Auto) 0.6 % (0.0-1.8); Eosinophils # (Auto) 0.1 K/mm3 (0.0-0.4); Eosinophils % (Auto) 0.6 % (0.0-4.3); Hematocrit 40.6 % (30.3-42.9); Hemoglobin 13.2 gm/dl (10.1-14.3); Lymphocytes # (Auto) 1.6 K/mm3 (1.2-5.4); Lymphocytes % (Auto) 17.8 % (13.4-35.0); Mean Corpuscular HGB Conc 33 % (30-34); Mean Corpuscular Hemoglobin 27 pg (28-32); Mean Corpuscular Volume 82 fl (79-97); Monocytes # (Auto) 0.6 K/mm3 (0.0-0.8); Monocytes % (Auto) 6.2 % (0.0-7.3); Red Blood Count 4.95 M/mm3 (3.65-5.03); Red Cell Distribution Width 16.4 % (13.2-15.2)
[2018-07-06 06:22] LABS: Platelet Count 260 K/mm3 (140-440)
[2018-07-06 06:28] LABS: INR 1.19 (0.87-1.13)
[2018-07-06 06:31] LABS: Calcium 9.5 mg/dL (8.4-10.2)
[2018-07-06] MEDS: LASIX IV SCH ×2 (06:44→18:45)
[2018-07-06] MEDS: HEPARIN/ 0.45% NACL-25,000 UNIT/500 ML 25,000 UNIT/500 ML BAG IV SCH (06:44)
[2018-07-06] MEDS ORDERED: NACL 0.9% 500 ML 500 ML ONE (08:15)
[2018-07-06] MEDS ORDERED: ASPIRIN ONE (08:15)
[2018-07-06] MEDS: NEURONTIN PO SCH ×3 (08:18→22:49)
[2018-07-06] MEDS: ASPIRIN PO SCH ×2 (08:25→10:00)
[2018-07-06] MEDS ORDERED: HEPARIN/NS 5000 UNIT/500ML(CATH LAB) 1,000 ML IR ONE (09:29)
[2018-07-06] MEDS ORDERED: HEPARIN 10,000 UNITS/10 ML ONE (09:29)
[2018-07-06] MEDS ORDERED: XYLOCAINE 2% INFILTRATI ONE (09:30)
[2018-07-06] MEDS ORDERED: VERSED ONE (09:30)
[2018-07-06] MEDS ORDERED: SUBLIMAZE ONE (09:30)
[2018-07-06] MEDS ORDERED: NITROGLYCERIN SYRINGE 3 ML ONE (09:30)
[2018-07-06] MEDS ORDERED: CALAN ONE (09:30)
--- NOTE | 2018-07-06 12:31 | Cardiac Catherization Report ---
CARDIAC CATHETERIZATION REFERRING PHYSICIAN: Renetta Jacobson M.D.. INDICATION FOR PROCEDURE: The patient is a pleasant 82-year-old female with multiple medical problems including systolic heart failure, coronary artery disease, pacemaker, CVA, memory loss, who presents with shortness of breath and chest pain, found to have a non-STEMI with a peak troponin of 4. She was diuresed. She has no orthopnea today. Kidney function is normal. Risks, benefits, and alternatives were discussed with the patient and daughter. They would like to proceed with left heart catheterization. Risks, benefits, and potential alternatives were explained at length prior to obtaining informed consent. PROCEDURE IN DETAIL: The patient was brought to the catheterization lab in a postabsorptive state and prepped and draped in sterile fashion. Michael's test in right hand is normal. A 2 mL of 2% lidocaine was used to anesthetize the right wrist. A standard 6-[place] hydrophilic sheath was used to cannulate the right radial artery via modified Seldinger technique. All exchanges were performed to exchange a J-tip guidewire. JL3.5 catheter was used to engage the left main. No dampening or ventricularization. Cineangiography performed in all projections. JR4 catheter was used to cross the aortic valve under fluoroscopic guidance. Left ventriculography performed in 30 LERMA and 30 ICELANDIC projections via hand injections. Catheter flushed. Manual pullback performed with continuous pressure monitoring. Catheter used to engage the right coronary. No dampening or ventricularization. Cineangiography performed in all projections. Next, due to recurrent chest pain, hypertension, a root aortogram was performed with a pigtail catheter in the ICELANDIC projection and power injector. Next, catheter removed from the body of wire, sheath removed. Manual pressure used to achieve hemostasis. I directly supervised the administration of moderate sedation from 9:50 a.m. to 10:15 a.m. INTERPRETATION: The patient remained in atrial fibrillation with controlled ventricular response throughout the procedure. Aortic pressure is 120/60, LV pressure is 120, LVP of 15 mmHg. Left ventriculography reveals severe global left ventricular hypokinesis, estimated ejection fraction of 20-25%. No evidence of aortic stenosis. At least mild mitral regurgitation is noted. CORONARY ANATOMY: This is a right dominant system. It should be noted that the entire coronary tree is heavily calcified. Left main is long without significant disease, bifurcates the left anterior descending and left circumflex. LAD is a moderate sized vessel, courses anterior intergroove, wraps around the apex, heavily calcified, mild nonobstructive disease, maximal narrowing of 25% in the mid segment. Circumflex is a moderate sized vessel, courses AV groove. Moderate diffuse distal small vessel disease with ROB 3 flow. No main segment occlusive disease identified. Right coronary is heavily calcified as well throughout large vessel, courses AV groove, distally bifurcates in the posterior and posterolateral branch. No discrete stenosis identified, ROB 3 flow. Root aortography reveals a type 3 arch, calcified. No evidence of significant dilatation. No evidence of significant aortic insufficiency. No dissection or penetrating aortic ulcer. CONCLUSIONS: 1. Mild nonobstructive disease of ROB 3 flow throughout. There is heavily calcified right dominant coronary tree. No obstructive disease identified. 2. Severe global left ventricular hypokinesis, estimated ejection fraction of 20-25%. 3. No evidence of aortic stenosis. 4. At least mild mitral regurgitation. 5. Root aortography without evidence of aortic dissection, aortic valve insufficiency, or penetrating aortic ulcer. At this point, recommend aggressive primary and secondary prevention measures. Check echocardiogram to further assess valvular function. The dual-chamber device appears to be a pacemaker. The patient may be considered for an upgrade to an ICD given her cardiomyopathy but needs to be on systemic anticoagulation. She is clinically stable and euvolemic at this point. Results of procedure were explained to the patient and daughter. All questions and concerns were addressed. The patient will be transferred to telemetry floor for standard radial care. JOB# [id number] SBM/NTS
[2018-07-06] MEDS: LOPRESSOR PO SCH ×2 (12:50→22:50)
--- NOTE | 2018-07-06 13:22 | Progress Note ---
Assessment and Plan Assessment: NSTEMI type II - ECG with no acute ischemic changes Acute on chronic systolic heart failure Atrial fibrillation with RVR --> CVR; anticoagulated with Xarelto; thyroid profile WNL NICMP PPM in situ HTN HLP DM H/o gout ? dementia Plan: S/p C this AM which showed mild nonobstructive disease, EF 20-25%. D/c heparin gtt and resume home Xarelto. Await echo. Pt's PPM is [employer] dual chamber PPM, last generator change was 09/27/2017 at [place]. Can consider upgrade to AICD as OP. Cont diuresis with possible d/c in AM. The patient has been seen in conjunction with Dr. Babin who agrees with the assessment and plan of care. Subjective Date of service: 07/06/18 Principal diagnosis: HF; NSTEMI Interval history: pt for [facility] [place] this AM, no current complaints. Objective Last Vital Signs Temp 97.4 F L 07/06/18 11:32 Pulse 70 07/06/18 11:32 Resp 20 07/06/18 11:32 BP 121/71 07/06/18 11:32 Pulse Ox 96 07/06/18 11:32 - Physical Examination General: No Apparent Distress HEENT: Positive: PERRL, Normocephaly, Mucus Membranes Moist Neck: Positive: neck supple, trachea midline Cardiac: Positive: irregularly irregular, S1/S2 Lungs: Positive: Decreased Breath Sounds Neuro: Positive: Grossly Intact Abdomen: Positive: Soft. Negative: Tender Skin: Positive: Clear. Negative: Rash, Wound Musculoskeletal: No Pain Extremities: Present: edema (trace BLE) - Labs and Meds Cardiac Enzymes 07/05/18 Range/Units 15:45 CK-MB (CK-2) 46.9 H (0.0-4.0) ng/mL Coagulation 07/06/18 Range/Units 05:52 PT 15.8 H (12.2-14.9) Sec. INR 1.19 H (0.87-1.13) CBC 07/06/18 Range/Units 05:52 WBC 8.9 (4.5-11.0) K/mm3 RBC 4.95 (3.65-5.03) M/mm3 Hgb 13.2 (10.1-14.3) gm/dl Hct 40.6 (30.3-42.9) % Plt Count 260 (140-440) K/mm3 Lymph # 1.6 (1.2-5.4) K/mm3 [place] # 0.6 (0.0-0.8) K/mm3 Eos # 0.1 (0.0-0.4) K/mm3 Baso # 0.1 (0.0-0.1) K/mm3 Comprehensive Metabolic Panel 07/06/18 Range/Units 05:52 Sodium 137 (137-145) mmol/L Potassium 4.7 (3.6-5.0) mmol/L Chloride 98.9 (98-107) mmol/L Carbon Dioxide 22 (22-30) mmol/L BUN 25 H (7-17) mg/dL Creatinine 1.1 (0.7-1.2) mg/dL Glucose 82 (65-100) mg/dL Calcium 9.5 (8.4-10.2) mg/dL - Imaging and Cardiology EKG: report reviewed (atrial fibrillation ventricular premature complexes right bundle-branch block heart rate of 121/m) Echo: report reviewed (05/2015 was TDS due to body habitus, showed EF 40-45%, paradoxical septal motion, pacemaker wire in RV. ) Cardiac cath: report reviewed (05/2015 showed mild nonobstructive CAD, dilated NICMP with EF <20%. ) - Telemetry EKG Rhythm: Atrial Fibrillation
[2018-07-06] MEDS: TRICOR PO SCH (14:38)
[2018-07-06] MEDS: LEXAPRO PO SCH (14:39)
[2018-07-06] MEDS: VITAMIN B-12 PO SCH (14:40)
[2018-07-06] MEDS: K-DUR PO SCH ×2 (14:44→22:49)
[2018-07-06] MEDS: TRADJENTA PO SCH (14:47)
[2018-07-06] MEDS: LANOXIN PO SCH (14:48)
[2018-07-06] MEDS: ZESTRIL PO SCH (14:49)
[2018-07-06] MEDS: SODIUM CHLORIDE FLUSH SYRINGE 10 ML IV SCH ×2 (14:49→22:50)
[2018-07-06] MEDS: AMARYL PO SCH (14:54)
[2018-07-06] MEDS ORDERED: D50W (25GM) Syringe IV ONE (17:16)
--- NOTE | 2018-07-06 17:35 | Progress Note ---
Assessment and Plan NSTEMI type I - ECG with no acute ischemic changes - Cont ASA, statin, lisinopril, IV lasix - s/p cardiac cath today, off heparin drip, restarted xarelto Acute on chronic systolic heart failure, F/u echo. Atrial fibrillation with RVR - anticoagulated with Xarelto HTN, cont to monitor HLP, statin DM type 2, SSI H/o gout, not in flare ? dementia, supportive care Subjective Date of service: 07/06/18 Principal diagnosis: HF; NSTEMI Interval history: Pt seen and examined Patient had cardiac cath today off heparin drip following cardiac cath Objective - Exam Narrative Exam: General appearance: no acute distress HEENT: Positive: PERRL, Normocephaly, Mucus Membranes Moist Neck: Positive: neck supple, trachea midline Cardiac: Positive: irregularly irregular, S1/S2, Tachycardia Lungs: Positive: Decreased Breath Sounds Neuro: Positive: Grossly Intact Abdomen: Positive: Soft. Negative: Tender Skin: Positive: Clear. Negative: Rash, Wound Musculoskeletal: No Pain Extremities: Present: edema (trace BLE) - Constitutional Vitals: Vital Signs - 12hr 07/06/18 07/06/18 07/06/18 07:30 08:08 11:30 Temperature 97.9 F Pulse Rate 87 47 L Respiratory 25 H 16 Rate Blood Pressure Blood Pressure 121/75 121/71 [Left] O2 Sat by Pulse 99 99 86 Oximetry 07/06/18 07/06/18 07/06/18 11:32 12:00 12:30 Temperature 97.4 F L Pulse Rate 70 49 L 83 Respiratory 20 16 18 Rate Blood Pressure 121/71 Blood Pressure 113/59 120/69 [Left] O2 Sat by Pulse 96 91 97 Oximetry 07/06/18 14:48 Temperature Pulse Rate 50 L Respiratory Rate Blood Pressure Blood Pressure [Left] O2 Sat by Pulse Oximetry - Labs CBC & Chem 7: 07/06/18 05:52 07/06/18 05:52 Labs: Abnormal lab results 07/04/18 07/05/18 07/06/18 Range/Units 21:27 21:26 05:52 MCH 27 L (28-32) pg RDW 16.4 H (13.2-15.2) % Seg Neutrophils % 74.8 H (40.0-70.0) % PT (12.2-14.9) Sec. INR (0.87-1.13) Heparin Anti-Xa Level (0.3-0.7) U.I./ml BUN (7-17) mg/dL POC Glucose 159 H 128 H (70-105) 07/06/18 07/06/18 07/06/18 Range/Units 05:52 05:52 11:45 MCH (28-32) pg RDW (13.2-15.2) % Seg Neutrophils % (40.0-70.0) % PT 15.8 H (12.2-14.9) Sec. INR 1.19 H (0.87-1.13) Heparin Anti-Xa Level (0.3-0.7) U.I./ml BUN 25 H (7-17) mg/dL POC Glucose 51 L (70-105) 07/06/18 07/06/18 Range/Units 13:36 17:20 MCH (28-32) pg RDW (13.2-15.2) % Seg Neutrophils % (40.0-70.0) % PT (12.2-14.9) Sec. INR (0.87-1.13) Heparin Anti-Xa Level < 0.10 L (0.3-0.7) U.I./ml BUN (7-17) mg/dL POC Glucose < 40 L (70-105)
[2018-07-06] MEDS ORDERED: D5NS 1,000 ML IV SCH (18:00)
[2018-07-06] MEDS: XARELTO PO SCH (18:45)
[2018-07-06] MEDS: ZYLOPRIM PO SCH (22:49)
[2018-07-07] MEDS: LASIX IV SCH ×2 (06:56→17:09)
[2018-07-07] MEDS: NEURONTIN PO SCH ×3 (10:11→21:22)
[2018-07-07] MEDS: LEXAPRO PO SCH (10:11)
[2018-07-07] MEDS: TRICOR PO SCH (10:11)
[2018-07-07] MEDS: XARELTO PO SCH (10:12)
[2018-07-07] MEDS: VITAMIN B-12 PO SCH (10:12)
[2018-07-07] MEDS: BABY ASPIRIN PO SCH (10:13)
[2018-07-07] MEDS: K-DUR PO SCH ×2 (10:13→21:22)
[2018-07-07] MEDS: LANOXIN PO SCH (10:21)
[2018-07-07] MEDS: LOPRESSOR PO SCH ×2 (10:22→21:22)
[2018-07-07] MEDS: ZESTRIL PO SCH (10:23)
[2018-07-07] MEDS: SODIUM CHLORIDE FLUSH SYRINGE 10 ML IV SCH ×2 (10:23→21:22)
--- NOTE | 2018-07-07 12:24 | Progress Note ---
Assessment and Plan Assessment: NSTEMI type II - ECG with no acute ischemic changes; s/p LHC this AM which showed mild nonobstructive disease, EF 20-25%. Acute on chronic systolic heart failure Atrial fibrillation with RVR --> CVR; anticoagulated with Xarelto; thyroid profile WNL NICMP - EF 10-15% PPM in situ - Medtr[employer] LV thrombi HTN HLP DM H/o gout ? dementia Plan: Echo reviewed - EF 10-15%, mild LVH, abnormal diastolic function, 2 small thrombi visualized in the LV apex, LA mild to mod dilated, RV mildly dilated, RV systolic function severely reduced, pacemaker wire in RA and RV, RA mod to severely dilated, mild MR, mild to mod TR, RVSP 44mmHg. Echo findings d/w pt's daughter. Conversion of Xarelto to coumadin recommended in setting of LV thrombus. Pt's daughter is agreeable to this plan as pt is going to be discharged to SNF and she feels pt will be appropriately monitored. Will initiate heparin gtt this evening (pt had Xarelto this AM) and PO coumadin with tx INR 2-3. Cardiac defibrillator recommended in setting of CMP. D/w pt's daughter who wishes to consider upgrade of PPM to AICD as OP. Cont diuresis. The patient has been seen in conjunction with Dr. Babin who agrees with the assessment and plan of care. Subjective Date of service: 07/07/18 Principal diagnosis: HF; NSTEMI Interval history: pt resting in bed, no current complaints. appears more confused today. Objective Last Vital Signs Temp 98.6 F 07/07/18 08:41 Pulse 58 L 07/07/18 10:23 Resp 18 07/07/18 08:41 BP 100/60 07/07/18 10:23 Pulse Ox 98 07/07/18 08:41 - Physical Examination General: No Apparent Distress HEENT: Positive: PERRL, Normocephaly, Mucus Membranes Moist Neck: Positive: neck supple, trachea midline Cardiac: Positive: irregularly irregular, S1/S2 Lungs: Positive: Decreased Breath Sounds Neuro: Positive: Grossly Intact Abdomen: Positive: Soft. Negative: Tender Skin: Positive: Clear. Negative: Rash, Wound Musculoskeletal: No Pain Extremities: Present: edema (trace BLE) - Labs and Meds Comprehensive Metabolic Panel 07/07/18 Range/Units 05:35 Glucose 53 L (65-100) mg/dL - Imaging and Cardiology EKG: report reviewed (atrial fibrillation ventricular premature complexes right bundle-branch block heart rate of 121/m) Echo: report reviewed (05/2015 was TDS due to body habitus, showed EF 40-45%, paradoxical septal motion, pacemaker wire in RV. ) Cardiac cath: report reviewed (05/2015 showed mild nonobstructive CAD, dilated NICMP with EF <20%. )
--- NOTE | 2018-07-07 14:58 | Progress Note ---
Assessment and Plan LV thrombi, - started on heparin drip and bridge with coumadin Will hold as INR >3 NSTEMI type II- ECG with no acute ischemic changes - likely from underlying CHF - Cont ASA, statin, lisinopril, IV lasix - s/p cardiac cath showed reduced EF Acute on chronic systolic heart failure, 10-15% EF on echo. Atrial fibrillation with RVR - anticoagulated with Xarelto, now plan to change to coumadin HTN, cont to monitor HLP, statin DM type 2, SSI H/o gout, not in flare ? dementia, supportive care Subjective Date of service: 07/07/18 Principal diagnosis: HF; NSTEMI Interval history: Pt seen and examined BG noted below 50 states she was not eating right, but today she is eating better Objective - Exam Narrative Exam: General appearance: no acute distress, obese HEENT: Positive: PERRL, Normocephaly, Mucus Membranes Moist Neck: Positive: neck supple, trachea midline Cardiac: Positive: irregularly irregular, S1/S2, Tachycardia Lungs: Positive: Decreased Breath Sounds Neuro: Positive: Grossly Intact Abdomen: Positive: Soft. Negative: Tender Skin: Positive: Clear. Negative: Rash, Wound Musculoskeletal: No Pain Extremities: Present: edema (trace BLE) - Constitutional Vitals: Vital Signs - 12hr 07/07/18 07/07/18 07/07/18 04:52 08:41 10:21 Temperature 97.4 F L 98.6 F Pulse Rate 68 67 58 L Respiratory 20 18 Rate Blood Pressure 109/55 95/53 100/60 O2 Sat by Pulse 98 98 Oximetry 07/07/18 07/07/18 10:22 10:23 Temperature Pulse Rate 58 L 58 L Respiratory Rate Blood Pressure 100/60 100/60 O2 Sat by Pulse Oximetry - Labs CBC & Chem 7: 07/07/18 16:25 07/07/18 18:05 Labs: Abnormal lab results 07/06/18 07/06/18 07/07/18 Range/Units 17:20 18:32 05:15 Glucose (65-100) mg/dL POC Glucose < 40 L 123 H < 40 L (70-105) 07/07/18 07/07/18 07/07/18 Range/Units 05:35 06:50 07:14 Glucose 53 L (65-100) mg/dL POC Glucose 56 L 65 L (70-105) 07/07/18 07/07/18 Range/Units 12:16 13:02 Glucose (65-100) mg/dL POC Glucose 42 L 59 L (70-105)
[2018-07-07] MEDS ORDERED: HEPARIN/ 0.45% NACL-25,000 UNIT/500 ML 25,000 UNIT/500 ML BAG IV SCH (16:00)
[2018-07-07] MEDS ORDERED: COUMADIN PO SCH (17:00)
[2018-07-07 17:14] LABS: Hematocrit 38.1 % (30.3-42.9); Hemoglobin 12.9 gm/dl (10.1-14.3)
[2018-07-07 17:26] LABS: INR 3.55 (0.87-1.13)
[2018-07-07 17:27] LABS: Partial Thromboplastin Time 58.3 Sec. (24.2-36.6)
[2018-07-07] MEDS: ZYLOPRIM PO SCH (21:22)
[2018-07-07] MEDS: D10W 1,000 ML IV SCH (23:27)
[2018-07-08] MEDS: D50W (25GM) Syringe IV PRN ×5 (00:37→16:16)
[2018-07-08 05:56] LABS: Hematocrit 36.4 % (30.3-42.9); Hemoglobin 11.7 gm/dl (10.1-14.3)
[2018-07-08 06:20] LABS: INR 2.53 (0.87-1.13)
[2018-07-08 06:25] LABS: Alanine Aminotransferase 46 units/L (7-56); BUN/Creatinine Ratio 24; Blood Urea Nitrogen 29 mg/dL (7-17); Calcium 8.5 mg/dL (8.4-10.2); Hemolysis Index 0
[2018-07-08 06:39] LABS: Bilirubin,Direct < 0.2 mg/dL (0-0.2)
[2018-07-08] MEDS: LASIX IV SCH ×2 (06:46→18:50)
[2018-07-08] MEDS: LEXAPRO PO SCH (09:40)
[2018-07-08] MEDS: K-DUR PO SCH ×2 (09:42→22:00)
[2018-07-08] MEDS: TRICOR PO SCH (09:42)
[2018-07-08] MEDS: NEURONTIN PO SCH ×3 (09:42→20:00)
[2018-07-08] MEDS: BABY ASPIRIN PO SCH (09:42)
[2018-07-08] MEDS: LANOXIN PO SCH (09:43)
[2018-07-08] MEDS: VITAMIN B-12 PO SCH (09:50)
[2018-07-08] MEDS: LOPRESSOR PO SCH (09:51)
[2018-07-08] MEDS: SODIUM CHLORIDE FLUSH SYRINGE 10 ML IV SCH ×2 (09:54→22:00)
[2018-07-08] MEDS: ZESTRIL PO SCH (10:00)
--- NOTE | 2018-07-08 11:50 | Progress Note ---
Assessment and Plan LV thrombi, - started on heparin drip and bridge with coumadin - Off heparin drip now has INR of greater than 2 -We'll start Coumadin 2.5 mg from today NSTEMI type II- ECG with no acute ischemic changes - likely from underlying CHF - Cont ASA, statin, lisinopril, IV lasix - s/p cardiac cath showed reduced EF - Plan to change PPM to AICD as outpatient Severe hypoglycemia - stopped all hypoglycemic medications - cont D10 - give one dose on dexamethasone - obtain serum cortisol level - Patient has normal TSH and T4 level Acute on chronic systolic heart failure, 10-15% EF on echo. Atrial fibrillation with RVR - anticoagulated with Xarelto, now changed to coumadin HTN, cont to monitor HLP, statin DM type 2, SSI H/o gout, not in flare ? dementia, supportive care Subjective Date of service: 07/08/18 Principal diagnosis: HF; NSTEMI Interval history: Pt seen and examined BG persistently below 50 Very poor appetite, but per RN she had good lunch and breakfast IV fluids changed to D10 overnight Objective - Exam Narrative Exam: General appearance: no acute distress, obese HEENT: Positive: PERRL, Normocephaly, Mucus Membranes Moist Neck: Positive: neck supple, trachea midline Cardiac: Positive: irregularly irregular, S1/S2, Tachycardia Lungs: Positive: Decreased Breath Sounds Neuro: Positive: Grossly Intact Abdomen: Positive: Soft. Negative: Tender Skin: Positive: Clear. Negative: Rash, Wound Musculoskeletal: No Pain Extremities: Present: edema (trace BLE) - Constitutional Vitals: Vital Signs - 12hr 07/08/18 07/08/18 07/08/18 01:07 05:32 07:40 Temperature 98.0 F 97.5 F L 97.9 F Pulse Rate 56 L 81 58 L Respiratory 20 20 20 Rate Blood Pressure 121/50 131/56 115/58 O2 Sat by Pulse 97 100 100 Oximetry 07/08/18 07/08/18 09:43 09:51 Temperature Pulse Rate 60 60 Respiratory Rate Blood Pressure 116/60 116/60 O2 Sat by Pulse Oximetry - Labs CBC & Chem 7: 07/08/18 04:35 07/08/18 04:35 Labs: Abnormal lab results 07/07/18 07/07/18 07/07/18 Range/Units 12:16 13:02 16:25 PT 38.1 H (12.2-14.9) Sec. INR 3.55 H (0.87-1.13) APTT 58.3 H (24.2-36.6) Sec. Heparin Anti-Xa Level (0.3-0.7) U.I./ml Sodium (137-145) mmol/L Chloride (98-107) mmol/L BUN (7-17) mg/dL Glucose (65-100) mg/dL POC Glucose 42 L 59 L (70-105) AST (5-40) units/L Total Protein (6.3-8.2) g/dL Albumin (3.9-5) g/dL 07/07/18 07/07/18 07/07/18 Range/Units 17:03 18:05 21:49 PT (12.2-14.9) Sec. INR (0.87-1.13) APTT (24.2-36.6) Sec. Heparin Anti-Xa Level (0.3-0.7) U.I./ml Sodium (137-145) mmol/L Chloride (98-107) mmol/L BUN (7-17) mg/dL Glucose 48 L (65-100) mg/dL POC Glucose 42 L 42 L (70-105) AST (5-40) units/L Total Protein (6.3-8.2) g/dL Albumin (3.9-5) g/dL 07/07/18 07/07/18 07/08/18 Range/Units 22:07 22:42 00:36 PT (12.2-14.9) Sec. INR (0.87-1.13) APTT (24.2-36.6) Sec. Heparin Anti-Xa Level 2.00 H (0.3-0.7) U.I./ml Sodium (137-145) mmol/L Chloride (98-107) mmol/L BUN (7-17) mg/dL Glucose (65-100) mg/dL POC Glucose 42 L < 40 L (70-105) AST (5-40) units/L Total Protein (6.3-8.2) g/dL Albumin (3.9-5) g/dL 08/11/18 08/11/18 08/11/18 Range/Units 03:14 04:08 04:35 PT 29.0 H (12.2-14.9) Sec. INR 2.53 H (0.87-1.13) APTT (24.2-36.6) Sec. Heparin Anti-Xa Level (0.3-0.7) U.I./ml Sodium (137-145) mmol/L Chloride (98-107) mmol/L BUN (7-17) mg/dL Glucose (65-100) mg/dL POC Glucose < 40 L 41 L (70-105) AST (5-40) units/L Total Protein (6.3-8.2) g/dL Albumin (3.9-5) g/dL 07/08/18 07/08/18 Range/Units 04:35 07:18 PT (12.2-14.9) Sec. INR (0.87-1.13) APTT (24.2-36.6) Sec. Heparin Anti-Xa Level (0.3-0.7) U.I./ml Sodium 136 L (137-145) mmol/L Chloride 97.9 L (98-107) mmol/L BUN 29 H (7-17) mg/dL Glucose 101 H (65-100) mg/dL POC Glucose < 40 L (70-105) AST 49 H (5-40) units/L Total Protein 5.9 L D (6.3-8.2) g/dL Albumin 3.0 L (3.9-5) g/dL
--- NOTE | 2018-07-08 13:45 | Progress Note ---
Assessment and Plan Assessment: NSTEMI type II - ECG with no acute ischemic changes; s/p LHC showed mild nonobstructive disease, EF 20-25%. Acute on chronic systolic heart failure Atrial fibrillation with RVR --> CVR; anticoagulated with Xarelto; thyroid profile WNL NICMP - EF 10-15% PPM in situ - Medtr[employer] LV thrombi HTN HLP DM H/o gout ? dementia Plan: Echo reviewed - EF 10-15%, mild LVH, abnormal diastolic function, 2 small thrombi visualized in the LV apex, LA mild to mod dilated, RV mildly dilated, RV systolic function severely reduced, pacemaker wire in RA and RV, RA mod to severely dilated, mild MR, mild to mod TR, RVSP 44mmHg. Echo findings d/w pt's daughter. Conversion of Xarelto to coumadin recommended in setting of LV thrombus. Pt's daughter is agreeable to this plan as pt is going to be discharged to SNF and she feels pt will be appropriately monitored. Will initiate heparin gtt this evening (pt had Xarelto this AM) and PO coumadin with tx INR 2-3. Cardiac defibrillator recommended in setting of CMP. D/w pt's daughter who wishes to consider upgrade of PPM to AICD as OP. Cont diuresis. 07/08/2018>PT with INR being monitored.Discussed with .Will be started on small dose of Warfarin. Subjective Date of service: 07/08/18 Principal diagnosis: HF; NSTEMI Interval history: Patient is comfortable,telemetry showing atrial fib with controlled VR. Objective Vital Signs Temp Pulse Resp BP Pulse Ox 07/08/18 11:55 98.1 F 64 20 101/49 97 07/08/18 09:51 60 116/60 07/08/18 09:43 60 116/60 07/08/18 07:40 97.9 F 58 L 20 115/58 100 07/08/18 05:32 97.5 F L 81 20 131/56 100 07/08/18 01:07 98.0 F 56 L 20 121/50 97 07/07/18 21:22 81 98/51 07/07/18 20:45 97.7 F 79 18 98/51 98 07/07/18 20:40 81 07/07/18 16:55 98.6 F 18 110/51 07/07/18 16:00 58 L - Physical Examination General: No Apparent Distress HEENT: Positive: PERRL, Normocephaly, Mucus Membranes Moist Neck: Positive: neck supple, trachea midline Cardiac: Positive: Irregularly Regular Lungs: Positive: Decreased Breath Sounds Neuro: Positive: Grossly Intact Abdomen: Positive: Soft. Negative: Tender Skin: Positive: Clear. Negative: Rash, Wound Musculoskeletal: No Pain Extremities: Present: edema (trace BLE) - Labs and Meds Cardiac Enzymes 07/08/18 Range/Units 04:35 AST 49 H (5-40) units/L Coagulation 07/07/18 07/08/18 Range/Units 16:25 04:35 PT 38.1 H 29.0 H (12.2-14.9) Sec. INR 3.55 H 2.53 H (0.87-1.13) APTT 58.3 H (24.2-36.6) Sec. CBC 07/07/18 07/08/18 Range/Units 16:25 04:35 Hgb 12.9 11.7 (10.1-14.3) gm/dl Hct 38.1 36.4 (30.3-42.9) % Plt Count 267 250 (140-440) K/mm3 Comprehensive Metabolic Panel 07/07/18 07/08/18 Range/Units 18:05 04:35 Sodium 136 L (137-145) mmol/L Potassium 4.6 (3.6-5.0) mmol/L Chloride 97.9 L (98-107) mmol/L Carbon Dioxide 29 D (22-30) mmol/L BUN 29 H (7-17) mg/dL Creatinine 1.2 (0.7-1.2) mg/dL Glucose 48 L 101 H (65-100) mg/dL Calcium 8.5 (8.4-10.2) mg/dL Direct Bilirubin < 0.2 (0-0.2) mg/dL Indirect Bilirubin 0.1 mg/dL AST 49 H (5-40) units/L ALT 46 (7-56) units/L Alkaline Phosphatase 54 (35-129) units/L Total Protein 5.9 L D (6.3-8.2) g/dL Albumin 3.0 L (3.9-5) g/dL - Imaging and Cardiology EKG: report reviewed (atrial fibrillation ventricular premature complexes right bundle-branch block heart rate of 121/m) Echo: report reviewed (05/2015 was TDS due to body habitus, showed EF 40-45%, paradoxical septal motion, pacemaker wire in RV. ) Cardiac cath: report reviewed (05/2015 showed mild nonobstructive CAD, dilated NICMP with EF <20%. )
[2018-07-08] MEDS ORDERED: DECADRON IV ONE (16:00)
[2018-07-08] MEDS ORDERED: DECADRON IV SCH (16:00)
[2018-07-08] MEDS ORDERED: COUMADIN PO SCH (17:00)
[2018-07-08] MEDS: D10W 1,000 ML IV SCH (19:10)
[2018-07-08] MEDS: ZYLOPRIM PO SCH (22:00)
[2018-07-09] MEDS: LOPRESSOR PO SCH ×3 (00:19→21:58)
[2018-07-09] MEDS: LASIX IV SCH ×2 (06:47→17:48)
[2018-07-09 07:37] LABS: Hematocrit 38.8 % (30.3-42.9); Hemoglobin 12.6 gm/dl (10.1-14.3)
[2018-07-09 07:49] LABS: INR 1.44 (0.87-1.13)
[2018-07-09] MEDS: TRICOR PO SCH (09:12)
[2018-07-09] MEDS: NEURONTIN PO SCH ×3 (09:12→20:43)
[2018-07-09] MEDS: VITAMIN B-12 PO SCH (09:12)
[2018-07-09] MEDS: BABY ASPIRIN PO SCH (09:13)
[2018-07-09] MEDS: SODIUM CHLORIDE FLUSH SYRINGE 10 ML IV SCH ×2 (09:13→21:59)
[2018-07-09] MEDS: LEXAPRO PO SCH (09:13)
[2018-07-09] MEDS: ZESTRIL PO SCH (09:13)
[2018-07-09] MEDS: LANOXIN PO SCH (09:13)
[2018-07-09] MEDS: K-DUR PO SCH ×2 (09:24→23:19)
[2018-07-09 09:33] LABS: BUN/Creatinine Ratio TNR; Blood Urea Nitrogen TNR mg/dL (7-17)
[2018-07-09 09:34] LABS: Calcium TNR mg/dL (8.4-10.2); Hemolysis Index TNR
[2018-07-09] MEDS ORDERED: COUMADIN PO SCH (13:15)
[2018-07-09] MEDS ORDERED: LOVENOX SUB-Q SCH (14:00)
[2018-07-09] MEDS: LOVENOX SUB-Q SCH ×2 (14:03→21:57)
--- NOTE | 2018-07-09 15:01 | Progress Note ---
Assessment and Plan LV thrombi, - cont on therapeutic dose of lovenox and coumadin NSTEMI type II- ECG with no acute ischemic changes - likely from underlying CHF - Cont ASA, statin, lisinopril, IV lasix - s/p cardiac cath showed reduced EF - Plan to change PPM to AICD as outpatient Severe hypoglycemia, resolved - likely from poor appetite - stopped all hypoglycemic medications - placed on D10 - give one dose on dexamethasone - follow serum cortisol level - Patient has normal TSH and T4 level Acute on chronic systolic heart failure, 10-15% EF on echo. Atrial fibrillation with RVR - anticoagulated with Xarelto, now changed to coumadin HTN, cont to monitor HLP, statin DM type 2, SSI H/o gout, not in flare ? dementia, supportive care Subjective Date of service: 07/09/18 Principal diagnosis: HF; NSTEMI Interval history: Pt seen and examined BG much better today Improved appetite, Objective - Constitutional Vitals: Vital Signs - 12hr 07/09/18 07/09/18 07/09/18 04:00 04:06 05:03 Temperature 98.9 F Pulse Rate 68 60 66 Pulse Rate [ Apical] Respiratory 18 Rate Blood Pressure 115/69 Blood Pressure 115/69 [Left] O2 Sat by Pulse 100 100 Oximetry 07/09/18 07/09/18 07/09/18 07:26 08:00 10:00 Temperature 97.6 F Pulse Rate 55 L Pulse Rate [ 54 L Apical] Respiratory 18 18 Rate Blood Pressure 106/66 Blood Pressure [Left] O2 Sat by Pulse 99 Oximetry 07/09/18 07/09/18 12:00 12:29 Temperature 97.3 F L Pulse Rate 67 66 Pulse Rate [ Apical] Respiratory 18 Rate Blood Pressure 116/50 Blood Pressure [Left] O2 Sat by Pulse 99 Oximetry - Labs CBC & Chem 7: 07/09/18 07:13 07/09/18 15:43 Labs: Abnormal lab results 07/08/18 07/08/18 07/08/18 Range/Units 14:15 17:10 19:01 PT (12.2-14.9) Sec. INR (0.87-1.13) POC Glucose < 40 L 127 H 125 H (70-105) 07/08/18 07/08/18 07/09/18 Range/Units 19:56 22:13 00:04 PT (12.2-14.9) Sec. INR (0.87-1.13) POC Glucose 139 H 218 H 234 H (70-105) 07/09/18 07/09/18 07/09/18 Range/Units 02:50 06:26 07:13 PT 18.4 H (12.2-14.9) Sec. INR 1.44 H (0.87-1.13) POC Glucose 236 H 213 H (70-105) 07/09/18 Range/Units 12:34 PT (12.2-14.9) Sec. INR (0.87-1.13) POC Glucose 221 H (70-105)
--- NOTE | 2018-07-09 15:33 | Progress Note ---
Assessment and Plan Assessment: NSTEMI type II - ECG with no acute ischemic changes; s/p LHC showed mild nonobstructive disease, EF 20-25%. Acute on chronic systolic heart failure Atrial fibrillation with RVR --> CVR; anticoagulated with Xarelto; thyroid profile WNL NICMP - EF 10-15% PPM in situ - Medtr[employer] LV thrombi HTN HLP DM H/o gout ? dementia Plan: Echo reviewed - EF 10-15%, mild LVH, abnormal diastolic function, 2 small thrombi visualized in the LV apex, LA mild to mod dilated, RV mildly dilated, RV systolic function severely reduced, pacemaker wire in RA and RV, RA mod to severely dilated, mild MR, mild to mod TR, RVSP 44mmHg. Echo findings d/w pt's daughter. Conversion of Xarelto to coumadin recommended in setting of LV thrombus. Pt's daughter is agreeable to this plan as pt is going to be discharged to SNF and she feels pt will be appropriately monitored. Will initiate heparin gtt this evening (pt had Xarelto this AM) and PO coumadin with tx INR 2-3. Cardiac defibrillator recommended in setting of CMP. D/w pt's daughter who wishes to consider upgrade of PPM to AICD as OP. Cont diuresis. 07/08/2018>PT with INR being monitored.Discussed with .Will be started on small dose of Warfarin. 07/09/2018>PT?INR subtherapeutic,with labile readings,started on small dose of warfarin. Stable cardiac estevez.Ventricular rate is better controlled. Subjective Date of service: 07/09/18 Principal diagnosis: HF; NSTEMI Interval history: Feels better,eating better. Patient is comfortable,telemetry showing atrial fib with controlled VR. Objective Vital Signs Temp Pulse Pulse Resp BP BP Pulse Ox 07/09/18 12:29 66 18 116/50 99 07/09/18 12:00 97.3 F L 67 07/09/18 10:00 54 L 18 07/09/18 08:00 97.6 F 07/09/18 07:26 55 L 18 106/66 99 07/09/18 05:03 98.9 F 66 18 115/69 100 07/09/18 04:06 60 115/69 100 07/09/18 04:00 68 07/09/18 00:24 98.6 F 54 L 18 110/65 100 07/09/18 00:19 50 L 103/59 07/08/18 23:50 54 L 110/65 100 07/08/18 22:00 18 07/08/18 20:22 98.6 F 50 L 20 103/59 98 07/08/18 19:44 42 L 103/59 99 07/08/18 16:58 97.3 F L 20 90/64 - Physical Examination General: No Apparent Distress HEENT: Positive: PERRL, Normocephaly, Mucus Membranes Moist Neck: Positive: neck supple, trachea midline Cardiac: Positive: irregularly irregular Lungs: Positive: Normal Breath Sounds Neuro: Positive: Grossly Intact Abdomen: Positive: Soft. Negative: Tender Skin: Positive: Clear. Negative: Rash, Wound Musculoskeletal: No Pain Extremities: Present: edema (trace BLE) - Labs and Meds Coagulation 07/09/18 Range/Units 07:13 PT 18.4 H (12.2-14.9) Sec. INR 1.44 H (0.87-1.13) CBC 07/09/18 Range/Units 07:13 Hgb 12.6 (10.1-14.3) gm/dl Hct 38.8 (30.3-42.9) % Plt Count 262 (140-440) K/mm3 Comprehensive Metabolic Panel 07/09/18 Range/Units 07:13 Sodium TNR Potassium TNR Chloride TNR Carbon Dioxide TNR BUN TNR Creatinine TNR Glucose TNR Calcium TNR - Imaging and Cardiology EKG: report reviewed (atrial fibrillation ventricular premature complexes right bundle-branch block heart rate of 121/m) Echo: report reviewed (05/2015 was TDS due to body habitus, showed EF 40-45%, paradoxical septal motion, pacemaker wire in RV. ) Cardiac cath: report reviewed (05/2015 showed mild nonobstructive CAD, dilated NICMP with EF <20%. )
[2018-07-09] MEDS: COUMADIN PO SCH (17:48)
[2018-07-09] MEDS: ZYLOPRIM PO SCH (21:59)
[2018-07-10] MEDS ORDERED: KIONEX PO ONE ×2 (00:48→06:00)
[2018-07-10] MEDS ORDERED: SODIUM BICARBONATE IV ONE ×2 (00:48→06:00)
[2018-07-10] MEDS: LASIX IV SCH ×2 (05:13→17:16)
[2018-07-10 08:06] LABS: Hematocrit 38.8 % (30.3-42.9); Hemoglobin 12.8 gm/dl (10.1-14.3)
[2018-07-10 08:25] LABS: Calcium 9.6 mg/dL (8.4-10.2)
[2018-07-10] MEDS: NEURONTIN PO SCH ×3 (09:20→20:55)
[2018-07-10] MEDS: LEXAPRO PO SCH (09:20)
[2018-07-10] MEDS: TRICOR PO SCH (09:21)
[2018-07-10] MEDS: BABY ASPIRIN PO SCH (09:21)
[2018-07-10] MEDS: VITAMIN B-12 PO SCH (09:21)
[2018-07-10] MEDS: LOVENOX SUB-Q SCH ×2 (09:21→22:17)
[2018-07-10] MEDS: LOPRESSOR PO SCH ×2 (09:22→22:18)
[2018-07-10] MEDS: ZESTRIL PO SCH (09:23)
[2018-07-10] MEDS: LANOXIN PO SCH (09:23)
[2018-07-10] MEDS: SODIUM CHLORIDE FLUSH SYRINGE 10 ML IV SCH ×2 (09:24→22:20)
[2018-07-10 10:37] LABS: INR 1.5 (0.87-1.13)
--- NOTE | 2018-07-10 14:10 | Progress Note ---
Assessment and Plan Stable cardiac status. Continue current management. Goal INR 2-3. The patient has been seen in conjunction with Dr. Donaldson who agrees with the assessment and plan of care. - Patient Problems (1) Non-STEMI (non-ST elevated myocardial infarction) Current Visit: Yes Status: Acute (2) Acute on chronic HFrEF (heart failure with reduced ejection fraction) Current Visit: Yes Status: Acute (3) Atrial fibrillation, persistent Current Visit: Yes Status: Chronic (4) Mural thrombus of left ventricular apex Current Visit: Yes Status: Acute (5) Nonischemic cardiomyopathy Current Visit: Yes Status: Chronic (6) Presence of cardiac pacemaker Current Visit: Yes Status: Chronic (7) Hypertension Current Visit: Yes Status: Chronic (8) Diabetes Current Visit: No Status: Chronic Qualifiers: Diabetes mellitus type: type 2 Diabetes mellitus complication status: without complication Qualified Code(s): E11.9 - Type 2 diabetes mellitus without complications Subjective Date of service: 07/10/18 Principal diagnosis: HF; NSTEMI Interval history: The patient is resting comfortably in bed. No new complaints. Atrial fibrillation on the monitor with controlled ventricular rate. Objective Last Vital Signs Temp 97.6 F 07/10/18 12:00 Pulse 57 L 07/10/18 12:38 Resp 18 07/10/18 12:38 BP 102/47 07/10/18 12:38 Pulse Ox 96 07/10/18 12:38 - Physical Examination General: No Apparent Distress HEENT: Positive: PERRL, Normocephaly, Mucus Membranes Moist Neck: Positive: neck supple, trachea midline Cardiac: Positive: irregularly irregular, S1/S2 Lungs: Positive: clear to auscultation Neuro: Positive: Grossly Intact Abdomen: Positive: Soft. Negative: Tender Skin: Positive: Clear. Negative: Rash, Wound Musculoskeletal: No Pain Extremities: Absent: edema - Labs and Meds Coagulation 07/10/18 Range/Units 06:27 PT 19.0 H (12.2-14.9) Sec. INR 1.50 H (0.87-1.13) CBC 07/10/18 Range/Units 06:27 Hgb 12.8 (10.1-14.3) gm/dl Hct 38.8 (30.3-42.9) % Plt Count 301 (140-440) K/mm3 Comprehensive Metabolic Panel 07/09/18 07/10/18 Range/Units 15:43 06:27 Sodium 137 (137-145) mmol/L Potassium 5.8 H D 4.8 (3.6-5.0) mmol/L Chloride 93.1 L (98-107) mmol/L Carbon Dioxide 29 (22-30) mmol/L BUN 37 H (7-17) mg/dL Creatinine 1.1 (0.7-1.2) mg/dL Glucose 116 H (65-100) mg/dL Calcium 9.6 (8.4-10.2) mg/dL - Imaging and Cardiology EKG: report reviewed (atrial fibrillation ventricular premature complexes right bundle-branch block heart rate of 121/m) Echo: report reviewed (05/2015 was TDS due to body habitus, showed EF 40-45%, paradoxical septal motion, pacemaker wire in RV. ) Cardiac cath: report reviewed (05/2015 showed mild nonobstructive CAD, dilated NICMP with EF <20%. ) - Telemetry EKG Rhythm: Atrial Fibrillation
[2018-07-10] MEDS: COUMADIN PO SCH (17:16)
--- NOTE | 2018-07-10 18:25 | Progress Note ---
Assessment and Plan LV thrombi, - cont on therapeutic dose of lovenox and coumadin NSTEMI type II- ECG with no acute ischemic changes - likely from underlying CHF - Cont ASA, statin, lisinopril, IV lasix - s/p cardiac cath showed reduced EF - Plan to change PPM to AICD as outpatient Severe hypoglycemia, resolved after placing on D10 - likely from poor appetite - stopped all hypoglycemic medications - s/p one dose on dexamethasone - follow serum cortisol level - Patient has normal TSH and T4 level Acute on chronic systolic heart failure, 10-15% EF on echo. Atrial fibrillation with RVR - anticoagulated with Xarelto, now changed to coumadin HTN, cont to monitor HLP, statin DM type 2, SSI H/o gout, not in flare ? dementia, supportive care Subjective Date of service: 07/10/18 Principal diagnosis: HF; NSTEMI Interval history: Pt seen and examined BG stable off d10, Improved appetite, states feeling lot better Discussed with family at bedside Objective - Exam Narrative Exam: General appearance: no acute distress, obese HEENT: Positive: PERRL, Normocephaly, Mucus Membranes Moist Neck: Positive: neck supple, trachea midline Cardiac: Positive: irregularly irregular, S1/S2, Tachycardia Lungs: Positive: Decreased Breath Sounds Neuro: Positive: Grossly Intact Abdomen: Positive: Soft. Negative: Tender Skin: Positive: Clear. Negative: Rash, Wound Musculoskeletal: No Pain Extremities: Present: edema (trace BLE) - Constitutional Vitals: Vital Signs - 12hr 07/10/18 07/10/18 07/10/18 08:00 08:11 09:22 Temperature 98.2 F Pulse Rate 54 L 51 L Respiratory 18 Rate Blood Pressure 102/62 101/57 Blood Pressure [Left] O2 Sat by Pulse 100 Oximetry 07/10/18 07/10/18 07/10/18 09:23 10:00 12:00 Temperature 97.6 F Pulse Rate 51 L 52 L Respiratory 19 Rate Blood Pressure 101/57 Blood Pressure [Left] O2 Sat by Pulse 96 Oximetry 07/10/18 07/10/18 07/10/18 12:38 16:55 17:31 Temperature 98.0 F 98 F Pulse Rate 57 L 57 L 62 Respiratory 18 18 18 Rate Blood Pressure 102/47 97/45 Blood Pressure 97/45 [Left] O2 Sat by Pulse 96 100 97 Oximetry - Labs CBC & Chem 7: 07/10/18 06:27 07/10/18 06:27 Labs: Abnormal lab results 07/09/18 07/10/18 07/10/18 Range/Units 21:07 00:55 05:38 PT (12.2-14.9) Sec. INR (0.87-1.13) Chloride (98-107) mmol/L BUN (7-17) mg/dL Glucose (65-100) mg/dL POC Glucose 273 H 177 H 117 H (70-105) 07/10/18 07/10/18 07/10/18 Range/Units 06:27 06:27 14:01 PT 19.0 H (12.2-14.9) Sec. INR 1.50 H (0.87-1.13) Chloride 93.1 L (98-107) mmol/L BUN 37 H (7-17) mg/dL Glucose 116 H (65-100) mg/dL POC Glucose 139 H (70-105) 07/10/18 Range/Units 17:02 PT (12.2-14.9) Sec. INR (0.87-1.13) Chloride (98-107) mmol/L BUN (7-17) mg/dL Glucose (65-100) mg/dL POC Glucose 136 H (70-105)
[2018-07-10] MEDS: ZYLOPRIM PO SCH (22:18)
[2018-07-11] MEDS: LASIX IV SCH (06:33)
[2018-07-11 07:46] LABS: Hematocrit 37.7 % (30.3-42.9); Hemoglobin 12.4 gm/dl (10.1-14.3)
[2018-07-11 07:58] LABS: INR 1.57 (0.87-1.13)
[2018-07-11 08:06] LABS: BUN/Creatinine Ratio 42; Blood Urea Nitrogen 42 mg/dL (7-17); Calcium 8.9 mg/dL (8.4-10.2); Hemolysis Index 21
[2018-07-11] MEDS: LANOXIN PO SCH (10:29)
[2018-07-11] MEDS: TRICOR PO SCH (10:29)
[2018-07-11] MEDS: LEXAPRO PO SCH (10:30)
[2018-07-11] MEDS: SODIUM CHLORIDE FLUSH SYRINGE 10 ML IV SCH (10:30)
[2018-07-11] MEDS: VITAMIN B-12 PO SCH (10:30)
[2018-07-11] MEDS: ZESTRIL PO SCH (10:30)
[2018-07-11] MEDS: LOPRESSOR PO SCH (10:30)
[2018-07-11] MEDS: BABY ASPIRIN PO SCH (10:30)
[2018-07-11] MEDS: LOVENOX SUB-Q SCH (10:30)
[2018-07-11] MEDS: NEURONTIN PO SCH ×2 (10:31→16:09)
--- NOTE | 2018-07-11 10:45 | Progress Note ---
Assessment and Plan Assessment: NSTEMI type II - ECG with no acute ischemic changes; s/p LHC showed mild non- obstructive disease, EF 20-25%. Acute on chronic systolic heart failure Atrial fibrillation with RVR --> CVR; anticoagulated with Coumadin; thyroid profile WNL NICMP - EF 10-15% PPM in situ - [employer] LV thrombi HTN HLP DM H/o gout ? dementia Plan: Stable cardiac status. Continue current management including coumadin with goal INR 2-3. Cardiac defibrillator recommended in setting of CMP. D/w pt's daughter who wishes to consider upgrade of PPM to AICD as OP. Patient may be discharged from a cardiac standpoint with lovenox bridging. Follow up in the office in one week. The patient has been seen in conjunction with Dr. Jordan who agrees with the assessment and plan of care. - Patient Problems (1) Non-STEMI (non-ST elevated myocardial infarction) Current Visit: Yes Status: Acute (2) Acute on chronic HFrEF (heart failure with reduced ejection fraction) Current Visit: Yes Status: Acute (3) Atrial fibrillation, persistent Current Visit: Yes Status: Chronic (4) Mural thrombus of left ventricular apex Current Visit: Yes Status: Acute (5) Nonischemic cardiomyopathy Current Visit: Yes Status: Chronic (6) Presence of cardiac pacemaker Current Visit: Yes Status: Chronic (7) Hypertension Current Visit: Yes Status: Chronic (8) Diabetes Current Visit: No Status: Chronic Qualifiers: Diabetes mellitus type: type 2 Diabetes mellitus complication status: without complication Qualified Code(s): E11.9 - Type 2 diabetes mellitus without complications Subjective Date of service: 07/11/18 Principal diagnosis: HF; NSTEMI Interval history: The patient is resting in bed. No new complaints. Atrial fibrillation on the monitor with HR 60s. Objective Last Vital Signs Temp 98.2 F 07/11/18 04:07 Pulse 51 L 07/11/18 10:30 Resp 16 07/11/18 04:07 BP 114/54 07/11/18 10:30 Pulse Ox 99 07/11/18 04:07 - Physical Examination General: No Apparent Distress HEENT: Positive: PERRL, Normocephaly, Mucus Membranes Moist Neck: Positive: neck supple, trachea midline Cardiac: Positive: irregularly irregular, S1/S2 Lungs: Positive: clear to auscultation Neuro: Positive: Grossly Intact Abdomen: Positive: Soft. Negative: Tender Skin: Positive: Clear. Negative: Rash, Wound Musculoskeletal: No Pain Extremities: Absent: edema - Labs and Meds Coagulation 07/11/18 Range/Units 06:58 PT 19.7 H (12.2-14.9) Sec. INR 1.57 H (0.87-1.13) CBC 07/11/18 Range/Units 06:58 Hgb 12.4 (10.1-14.3) gm/dl Hct 37.7 (30.3-42.9) % Plt Count 300 (140-440) K/mm3 Comprehensive Metabolic Panel 07/11/18 Range/Units 06:58 Sodium 135 L (137-145) mmol/L Potassium 4.7 (3.6-5.0) mmol/L Chloride 93.3 L (98-107) mmol/L Carbon Dioxide 29 (22-30) mmol/L BUN 42 H (7-17) mg/dL Creatinine 1.0 (0.7-1.2) mg/dL Glucose 97 (65-100) mg/dL Calcium 8.9 (8.4-10.2) mg/dL - Imaging and Cardiology EKG: report reviewed (atrial fibrillation ventricular premature complexes right bundle-branch block heart rate of 121/m) Echo: report reviewed (05/2015 was TDS due to body habitus, showed EF 40-45%, paradoxical septal motion, pacemaker wire in RV. ) Cardiac cath: report reviewed (05/2015 showed mild nonobstructive CAD, dilated NICMP with EF <20%. ) - Telemetry EKG Rhythm: Atrial Fibrillation
--- NOTE | 2018-07-11 12:09 | Discharge Summary ---
Providers - Providers Date of Admission: 07/04/18 20:10 Date of discharge: 07/11/18 Attending physician: HEATHER YADAV 07/04/18 20:09 Consult to Physician [CONS] Routine Comment: Consulting Provider: EDILIA ANGELES Physician Instructions: Reason For Exam: CHF exacerbation 07/06/18 13:49 Consult to Cardiac Rehabilitation [CONS] Routine Reason For Exam: Cardiac Rehab Evaluation 07/10/18 10:34 Physical Therapy Evaluation and Treat [CONS] Routine Comment: Reason For Exam: Deconditioning, post NC Primary care physician: LINEMAN Hospitalization Condition: Stable Pertinent studies: CTA chest: 1. No evidence of large vessel or central pulmonary emboli. No acute consolidation. 2. Cardiomegaly and coronary artery calcifications. CT abdomen/pelvis; 1. Diverticulosis. 2. Probable leiomyomatous change in the uterus. 3. Degenerative and senescent changes. CXR: Cardiomegaly. Bipolar pacer. Mild pulmonary vascular cephalization with bronchial wall thickening. Findings may represent chronic congestive changes or a more acute vascular decompensation. Correlate with clinical symptoms. Cardiac cath 07/11/18: LHC showed mild nonobstructive disease, EF 20-25%. 2d echo: EF 10-15%, a thrombus in the LV apex. Hospital course: Brief history: The pt is an 82 YO female with a past medical history significant for heart failure, NICMP, ? PPM v. AICD in situ, atrial fibrillation, anticoagulated with Xarelto, HTN, HLP, DM, gout, ? dementia presented with complaints of intermittent chest pain and progressively worsening SOB with orthopnea for 1 week. Discharge diagnosis and management: LV thrombi, - cont on therapeutic dose of lovenox and coumadin NSTEMI type II- ECG with no acute ischemic changes - likely from underlying CHF - Cont ASA, statin, lisinopril, IV lasix - s/p cardiac cath showed reduced EF - Plan to change PPM to AICD as outpatient Severe hypoglycemia, resolved after placing on D10 - likely from poor appetite - stopped all hypoglycemic medications - s/p one dose on dexamethasone - follow serum cortisol level - Patient has normal TSH and T4 level Acute on chronic systolic heart failure, 10-15% EF on echo. Atrial fibrillation with RVR - anticoagulated with Xarelto, now changed to coumadin HTN, cont to monitor HLP, statin DM type 2, SSI H/o gout, not in flare ? dementia, supportive care Physical exam: General appearance: no acute distress, obese HEENT: Positive: PERRL, Normocephaly, Mucus Membranes Moist Neck: Positive: neck supple, trachea midline Cardiac: Positive: irregularly irregular, S1/S2, Tachycardia Lungs: Positive: Decreased Breath Sounds Neuro: Positive: Grossly Intact Abdomen: Positive: Soft. Negative: Tender Skin: Positive: Clear. Negative: Rash, Wound Musculoskeletal: No Pain Extremities: Present: edema (trace BLE) Disposition: DC/TX-03 [facility] Time spent for discharge: 34 minutes Exam - Constitutional Vitals: Temp Pulse Resp BP Pulse Ox 98.2 F 51 L 16 114/54 99 07/11/18 04:07 07/11/18 10:30 07/11/18 04:07 07/11/18 10:30 07/11/18 04:07 Plan Activity: up only with assistance Weight Bearing Status: Non-Weight Bearing Diet: low fat Special Instructions: restrict fluid intake to (1500 ml/day) Follow up with: PRIMARY CARE, [Primary Care Provider] - 3-5 Days Forms: Warfarin Discharge Instruction Prescriptions: Enoxaparin [Lovenox] 80 mg SUB-Q Q12HR #7 syringe HYDROcodone/APAP 5-325 [Quilcene 5-325 mg TAB] 1 each PO Q6HR PRN #14 tablet PRN Reason: Pain Metoprolol [Lopressor TAB] 50 mg PO BID #60 tablet Warfarin [Coumadin] 6 mg PO DAILY@1700 #30 tablet
[2018-07-11] MEDS ORDERED: COUMADIN PO SCH (17:00)
[2018-07-11 17:25] VITALS: BP 101/55
[2018-07-12] MEDS ORDERED: LASIX PO SCH (10:00)
== END 2018-07-11 19:25 | DRG 280 ==
LOC: ED 16:20 → 4A 20:10
PROVIDERS: ADMIT Internal Medicine; ATTEND Internal Medicine
PROC: 4A023N7 Measurement of Cardiac Sampling and Pressure, Left Heart, Percutaneous Approach (ICD-10-PCS; principal; 2018-07-06)
PROC: B2111ZZ Fluoroscopy of Multiple Coronary Arteries using Low Osmolar Contrast (ICD-10-PCS; 2018-07-06)
PROC: B2151ZZ Fluoroscopy of Left Heart using Low Osmolar Contrast (ICD-10-PCS; 2018-07-06)
DX: I21.A1 Myocardial infarction type 2 (principal); I50.43 Acute on chronic combined systolic (congestive) and diastolic (congestive) heart failure; J96.01 Acute respiratory failure with hypoxia; I42.8 Other cardiomyopathies; I48.1 Persistent atrial fibrillation; I11.0 Hypertensive heart disease with heart failure; M10.9 Gout, unspecified; E11.649 Type 2 diabetes mellitus with hypoglycemia without coma; E78.5 Hyperlipidemia, unspecified; E87.5 Hyperkalemia; I25.10 Atherosclerotic heart disease of native coronary artery without angina pectoris; E55.9 Vitamin D deficiency, unspecified; F32.9 Major depressive disorder, single episode, unspecified; M17.0 Bilateral primary osteoarthritis of knee; M16.0 Bilateral primary osteoarthritis of hip; Z95.810 Presence of automatic (implantable) cardiac defibrillator; Z79.01 Long term (current) use of anticoagulants; Z79.899 Other long term (current) drug therapy; Z82.49 Family history of ischemic heart disease and other diseases of the circulatory system; Z79.82 Long term (current) use of aspirin; Z86.73 Personal history of transient ischemic attack (TIA), and cerebral infarction without residual deficits
CPT/HCPCS: 36415; 71045; 71275; 74177; 80048; 80053; 80061; 80074; 80162; 81001; 82533; 82550; 82553; 82947; 82962; 83036; 83735; 83880; 84132; 84439; 84443; 84484; 85014; 85018; 85025; 85049; 85520; 85610; 85730; 87040; 93005; 93010; 93306; 93458; 93567; A9270-GY; C1894; G8978-GP; G8979-GP; J1100; J1644; J1650; J1940; J2250; J2270; J2405; J3010; J7030; J7040; J7042; Q9967